=== PATIENT | male | born 1960 | race Two or more races ===

== ENCOUNTER 2019-08-11 00:22 | Inpatient (IN) | payer OTHER ==
[2019-08-11 00:38] LABS: Glucose,Whole Blood >600 mg/dL (75-99)
[2019-08-11] MEDS ORDERED: Potassium Replacement Protocol 1 EACH MISC MISCELLANE PRN (00:38)
[2019-08-11] MEDS ORDERED: Magnesium Replacement Protocol 1 EACH MISC MISCELLANE PRN (00:38)
[2019-08-11] MEDS ORDERED: INSULIN REGULAR BOLUS (FROM DRIP BAG) IV ONE (00:38)
[2019-08-11] MEDS ORDERED: SODIUM CHLORIDE 0.9% 1,000 ML IV ONE (00:42)
--- NOTE | 2019-08-11 00:43 | ED ---
Altered Mental Status HPI - General Chief Complaint: Recheck/Abnormal Lab/Rx Stated Complaint: hyperglycemia Time Seen by Provider: 08/11/19 00:35 Source: patient, EMS Mode of arrival: EMS Limitations: altered mental status - History of Present Illness Initial Comments: This patient is a 58-year-old man brought for altered mental status, weakness, and vomiting. The patient is not able to give much history as he appears delirious. The patient's son states that he has been using a ketogenic diet and attempt to lose weight and that approximately 9 days or so ago, he started to have problems tolerating any oral intake. He was having vomiting after attempting to take things by mouth. The patient was able to tolerate chocolate milk and sodas and so that is pre-much which he has been taking the past few days. Patient's son does not live with him and is not aware if the patient has any medical history, does not believe that he is currently seeing a doctor. MD Complaint: altered mental status, confusion -: days(s) Severity: severe Associated Symptoms: denies other symptoms - Related Data Home Medications Medication Instructions Recorded Confirmed No Known Home Medications 08/11/19 08/11/19 Allergies Allergy/AdvReac Type Severity Reaction Status Date / Time No Known Allergies Allergy Verified 08/11/19 09:01 Review of Systems ROS Statement: Those systems with pertinent positive or pertinent negative responses have been documented in the HPI. ROS Other: All systems not noted in ROS Statement are negative. Limitations: ROS unobtainable due to patients medical condition Constitutional: Reports: as per HPI, weakness Gastrointestinal: Reports: as per HPI, nausea, vomiting Neurological: Reports: as per HPI, confusion Past Medical History Past Medical History: Diabetes Mellitus Past Surgical History: No Surgical Hx Reported Past Psychological History: No Psychological Hx Reported Smoking Status: Never smoker Past Alcohol Use History: None Reported Past Drug Use History: None Reported General Exam General appearance: alert, in distress Head exam: Present: atraumatic, normocephalic Eye exam: Present: normal appearance. Absent: scleral icterus, conjunctival injection ENT exam: Present: mucous membranes dry Neck exam: Present: full ROM. Absent: tenderness, meningismus Respiratory exam: Present: respiratory distress, other (Kussmaul respirations). Absent: wheezes, rales, rhonchi, stridor, decreased breath sounds Cardiovascular Exam: Present: normal rhythm, tachycardia, normal heart sounds. Absent: systolic murmur, diastolic murmur, rubs, gallop GI/Abdominal exam: Present: soft. Absent: distended, tenderness, guarding, rebound, rigid, mass Extremities exam: Present: normal inspection, normal capillary refill. Absent: pedal edema, calf tenderness Back exam: Present: normal inspection. Absent: CVA tenderness (R), CVA tenderness (L) Neurological exam: Present: alert, altered, CN II-XII intact. Absent: oriented X3, motor sensory deficit Skin exam: Present: warm, dry, intact, normal color, other (Decreased turgor) Course Vital Signs 08/11/19 08/11/19 08/11/19 00:28 01:25 02:46 Temperature 97.2 F L Pulse Rate 131 H 125 H 124 H Respiratory 26 H 36 H 36 H Rate Blood Pressure 97/72 192/99 177/86 O2 Sat by Pulse 98 99 96 Oximetry 08/11/19 08/11/19 08/11/19 03:19 05:08 06:29 Temperature Pulse Rate 125 H 116 H 114 H Respiratory 32 H 35 H 35 H Rate Blood Pressure 161/82 142/91 165/99 O2 Sat by Pulse 98 98 97 Oximetry 08/11/19 08/11/19 08/11/19 07:24 08:00 08:09 Temperature 96.2 F L Pulse Rate 118 H 108 H 106 H Respiratory 34 H 30 H 33 H Rate Blood Pressure 175/95 165/113 145/84 O2 Sat by Pulse 96 89 L 97 Oximetry Medical Decision Making - Lab Data Result diagrams: 08/14/19 08:29 08/14/19 08:29 Lab Results 08/11/19 08/11/19 08/11/19 Range/Units 00:34 00:49 00:49 WBC 41.7 H (3.8-10.6) k/uL RBC 5.54 (4.30-5.90) m/uL Hgb 17.0 (13.0-17.5) gm/dL Hct 57.4 H* (39.0-53.0) % MCV 103.6 H (80.0-100.0) fL MCH 30.7 (25.0-35.0) pg MCHC 29.6 L (31.0-37.0) g/dL RDW 12.0 (11.5-15.5) % Plt Count 578 H (150-450) k/uL Neutrophils % 74 % Lymphocytes % 22 % Monocytes % 2 % Eosinophils % 0 % Basophils % 1 % Neutrophils # 30.9 H (1.3-7.7) k/uL Lymphocytes # 9.1 H (1.0-4.8) k/uL Monocytes # 1.0 (0-1.0) k/uL Eosinophils # 0.1 (0-0.7) k/uL Basophils # 0.2 (0-0.2) k/uL Hypochromasia Marked Macrocytosis Slight VBG pH (7.31-7.41) VBG pCO2 (37-51) mmHg VBG HCO3 (24-28) mmol/L Sodium 135 L (137-145) mmol/L Potassium 4.4 (3.5-5.1) mmol/L Chloride 97 L (98-107) mmol/L Carbon Dioxide <5 L* (22-30) mmol/L Anion Gap mmol/L BUN 41 H (9-20) mg/dL Creatinine 2.18 H (0.66-1.25) mg/dL Est GFR (CKD-EPI)AfAm 37 (>60 ml/min/1.73 sqM) Est GFR (CKD-EPI)NonAf 32 (>60 ml/min/1.73 sqM) Glucose 944 H* (74-99) mg/dL POC Glucose (mg/dL) >600 H (75-99) mg/dL POC Glu Director Of Acquisitions ID Bhavya Arguello A Plasma Lactic Acid Norris (0.7-2.0) mmol/L Calcium 10.7 H (8.4-10.2) mg/dL Total Bilirubin 0.4 (0.2-1.3) mg/dL AST 21 (17-59) U/L ALT 26 (4-49) U/L Alkaline Phosphatase 165 H (38-126) U/L Troponin I (0.000-0.034) ng/mL Total Protein 7.7 (6.3-8.2) g/dL Albumin 4.2 (3.5-5.0) g/dL Urine Color Urine Appearance (Clear) Urine pH (5.0-8.0) Ur Specific Brewster (1.001-1.035) Urine Protein (Negative) Urine Glucose (UA) (Negative) Urine Ketones (Negative) Urine Blood (Negative) Urine Nitrite (Negative) Urine Bilirubin (Negative) Urine Urobilinogen (<2.0) mg/dL Ur Leukocyte Esterase (Negative) Urine RBC (0-5) /hpf Urine WBC (0-5) /hpf Urine WBC Clumps (None) /hpf Urine Bacteria (None) /hpf Urine Mucus (None) /hpf Urine Yeast (Budding) (None) /hpf Acetone, Qual Positive (Negative) 08/11/19 08/11/19 08/11/19 Range/Units 00:49 00:49 00:49 WBC (3.8-10.6) k/uL RBC (4.30-5.90) m/uL Hgb (13.0-17.5) gm/dL Hct (39.0-53.0) % MCV (80.0-100.0) fL MCH (25.0-35.0) pg MCHC (31.0-37.0) g/dL RDW (11.5-15.5) % Plt Count (150-450) k/uL Neutrophils % % Lymphocytes % % Monocytes % % Eosinophils % % Basophils % % Neutrophils # (1.3-7.7) k/uL Lymphocytes # (1.0-4.8) k/uL Monocytes # (0-1.0) k/uL Eosinophils # (0-0.7) k/uL Basophils # (0-0.2) k/uL Hypochromasia Macrocytosis VBG pH 6.82 L* (7.31-7.41) VBG pCO2 39 (37-51) mmHg VBG HCO3 6 L* (24-28) mmol/L Sodium (137-145) mmol/L Potassium (3.5-5.1) mmol/L Chloride (98-107) mmol/L Carbon Dioxide (22-30) mmol/L Anion Gap mmol/L BUN (9-20) mg/dL Creatinine (0.66-1.25) mg/dL Est GFR (CKD-EPI)AfAm (>60 ml/min/1.73 sqM) Est GFR (CKD-EPI)NonAf (>60 ml/min/1.73 sqM) Glucose (74-99) mg/dL POC Glucose (mg/dL) (75-99) mg/dL POC Glu Director Of Acquisitions ID Plasma Lactic Acid Norris 8.5 H* (0.7-2.0) mmol/L Calcium (8.4-10.2) mg/dL Total Bilirubin (0.2-1.3) mg/dL AST (17-59) U/L ALT (4-49) U/L Alkaline Phosphatase (38-126) U/L Troponin I <0.012 (0.000-0.034) ng/mL Total Protein (6.3-8.2) g/dL Albumin (3.5-5.0) g/dL Urine Color Urine Appearance (Clear) Urine pH (5.0-8.0) Ur Specific Brewster (1.001-1.035) Urine Protein (Negative) Urine Glucose (UA) (Negative) Urine Ketones (Negative) Urine Blood (Negative) Urine Nitrite (Negative) Urine Bilirubin (Negative) Urine Urobilinogen (<2.0) mg/dL Ur Leukocyte Esterase (Negative) Urine RBC (0-5) /hpf Urine WBC (0-5) /hpf Urine WBC Clumps (None) /hpf Urine Bacteria (None) /hpf Urine Mucus (None) /hpf Urine Yeast (Budding) (None) /hpf Acetone, Qual (Negative) 08/11/19 08/11/19 08/11/19 Range/Units 02:17 02:45 03:18 WBC (3.8-10.6) k/uL RBC (4.30-5.90) m/uL Hgb (13.0-17.5) gm/dL Hct (39.0-53.0) % MCV (80.0-100.0) fL MCH (25.0-35.0) pg MCHC (31.0-37.0) g/dL RDW (11.5-15.5) % Plt Count (150-450) k/uL Neutrophils % % Lymphocytes % % Monocytes % % Eosinophils % % Basophils % % Neutrophils # (1.3-7.7) k/uL Lymphocytes # (1.0-4.8) k/uL Monocytes # (0-1.0) k/uL Eosinophils # (0-0.7) k/uL Basophils # (0-0.2) k/uL Hypochromasia Macrocytosis VBG pH (7.31-7.41) VBG pCO2 (37-51) mmHg VBG HCO3 (24-28) mmol/L Sodium (137-145) mmol/L Potassium (3.5-5.1) mmol/L Chloride (98-107) mmol/L Carbon Dioxide (22-30) mmol/L Anion Gap mmol/L BUN (9-20) mg/dL Creatinine (0.66-1.25) mg/dL Est GFR (CKD-EPI)AfAm (>60 ml/min/1.73 sqM) Est GFR (CKD-EPI)NonAf (>60 ml/min/1.73 sqM) Glucose (74-99) mg/dL POC Glucose (mg/dL) >600 H >600 H (75-99) mg/dL POC Glu Director Of Acquisitions Lawrence Barragan Matthew Plasma Lactic Acid Norris (0.7-2.0) mmol/L Calcium (8.4-10.2) mg/dL Total Bilirubin (0.2-1.3) mg/dL AST (17-59) U/L ALT (4-49) U/L Alkaline Phosphatase (38-126) U/L Troponin I (0.000-0.034) ng/mL Total Protein (6.3-8.2) g/dL Albumin (3.5-5.0) g/dL Urine Color Light Yellow Urine Appearance Cloudy (Clear) Urine pH 5.0 (5.0-8.0) Ur Specific Brewster 1.018 (1.001-1.035) Urine Protein 1+ H (Negative) Urine Glucose (UA) 4+ H (Negative) Urine Ketones 2+ H (Negative) Urine Blood Moderate H (Negative) Urine Nitrite Negative (Negative) Urine Bilirubin Negative (Negative) Urine Urobilinogen <2.0 (<2.0) mg/dL Ur Leukocyte Esterase Small H (Negative) Urine RBC 8 H (0-5) /hpf Urine WBC 35 H (0-5) /hpf Urine WBC Clumps Few H (None) /hpf Urine Bacteria Rare H (None) /hpf Urine Mucus Rare H (None) /hpf Urine Yeast (Budding) Rare H (None) /hpf Acetone, Qual (Negative) 06/10/20 Range/Units 04:15 WBC (3.8-10.6) k/uL RBC (4.30-5.90) m/uL Hgb (13.0-17.5) gm/dL Hct (39.0-53.0) % MCV (80.0-100.0) fL MCH (25.0-35.0) pg MCHC (31.0-37.0) g/dL RDW (11.5-15.5) % Plt Count (150-450) k/uL Neutrophils % % Lymphocytes % % Monocytes % % Eosinophils % % Basophils % % Neutrophils # (1.3-7.7) k/uL Lymphocytes # (1.0-4.8) k/uL Monocytes # (0-1.0) k/uL Eosinophils # (0-0.7) k/uL Basophils # (0-0.2) k/uL Hypochromasia Macrocytosis VBG pH (7.31-7.41) VBG pCO2 (37-51) mmHg VBG HCO3 (24-28) mmol/L Sodium (137-145) mmol/L Potassium (3.5-5.1) mmol/L Chloride (98-107) mmol/L Carbon Dioxide (22-30) mmol/L Anion Gap mmol/L BUN (9-20) mg/dL Creatinine (0.66-1.25) mg/dL Est GFR (CKD-EPI)AfAm (>60 ml/min/1.73 sqM) Est GFR (CKD-EPI)NonAf (>60 ml/min/1.73 sqM) Glucose (74-99) mg/dL POC Glucose (mg/dL) >600 H (75-99) mg/dL POC Glu Director Of Acquisitions ID Nia Randolph Plasma Lactic Acid Norris (0.7-2.0) mmol/L Calcium (8.4-10.2) mg/dL Total Bilirubin (0.2-1.3) mg/dL AST (17-59) U/L ALT (4-49) U/L Alkaline Phosphatase (38-126) U/L Troponin I (0.000-0.034) ng/mL Total Protein (6.3-8.2) g/dL Albumin (3.5-5.0) g/dL Urine Color Urine Appearance (Clear) Urine pH (5.0-8.0) Ur Specific Brewster (1.001-1.035) Urine Protein (Negative) Urine Glucose (UA) (Negative) Urine Ketones (Negative) Urine Blood (Negative) Urine Nitrite (Negative) Urine Bilirubin (Negative) Urine Urobilinogen (<2.0) mg/dL Ur Leukocyte Esterase (Negative) Urine RBC (0-5) /hpf Urine WBC (0-5) /hpf Urine WBC Clumps (None) /hpf Urine Bacteria (None) /hpf Urine Mucus (None) /hpf Urine Yeast (Budding) (None) /hpf Acetone, Qual (Negative) - EKG Data -: EKG Interpreted by De EKG shows normal: sinus rhythm, axis (Left axis deviation), intervals (Normal), QRS complexes (Normal), ST-T waves (Normal) Rate: tachycardia (Rate 128 bpm) Critical Care Time Critical Care Time: Yes (45 minutes) Disposition Clinical Impression: DKA (diabetic ketoacidoses), Acute kidney injury, Leukocytosis Disposition: ADMITTED IP TO THIS [facility] Condition: Critical Is patient prescribed a controlled substance at d/c from ED?: No
[2019-08-11 01:03] LABS: Basophils # (A) 0.2 k/uL (0-0.2); Basophils % (A) 1 %; Eosinophils # (A) 0.1 k/uL (0-0.7); Eosinophils % (A) 0 %; Hypochromasia Marked; Lymphocytes # (A) 9.1 k/uL (1.0-4.8); Lymphocytes % (A) 22 %; MCH 30.7 pg (25.0-35.0); MCHC 29.6 g/dL (31.0-37.0); MCV 103.6 fL (80.0-100.0); Macrocytosis Slight; Mean Platelet Volume 9.1; Monocytes % (A) 2 %; Neutrophils # (A) 30.9 k/uL (1.3-7.7); Neutrophils % (A) 74 %; Platelet Count 578 k/uL (150-450); RBC 5.54 m/uL (4.30-5.90); WBC 41.7 k/uL (3.8-10.6)
[2019-08-11 01:06] LABS: HCT 57.4 % (39.0-53.0)
--- NOTE | 2019-08-11 01:13 | XR ---
EXAMINATION TYPE: XR chest 1V portable DATE OF EXAM: 08/11/2019 COMPARISON: NONE HISTORY: Short of breath TECHNIQUE: FINDINGS: Heart and mediastinum are normal. Lungs are clear. Diaphragm is normal. Bony thorax appears normal. There are chest leads. IMPRESSION: Normal chest.
[2019-08-11] MEDS: INSULIN REGULAR 100 UNIT in SODIUM CHLORIDE 0.9% 100 ML IV SCH ×3 (01:17→15:09)
[2019-08-11 01:22] LABS: ALT 26 U/L (4-49); AST 21 U/L (17-59); African American GFR (CKD) 37 (>60 ml/min/1.73 sqM); Albumin 4.2 g/dL (3.5-5.0); Alkaline Phosphatase 165 U/L (38-126); Blood Urea Nitrogen 41 mg/dL (9-20); Calcium 10.7 mg/dL (8.4-10.2); Chloride 97 mmol/L (98-107); Non-African American GFR(CKD) 32 (>60 ml/min/1.73 sqM); Potassium 4.4 mmol/L (3.5-5.1); Sodium 135 mmol/L (137-145); Total Bilirubin 0.4 mg/dL (0.2-1.3); Total Protein 7.7 g/dL (6.3-8.2)
[2019-08-11 01:34] LABS: Carbon Dioxide <5 mmol/L (22-30); Glucose 944 mg/dL (74-99)
[2019-08-11 02:18] LABS: Glucose,Whole Blood >600 mg/dL (75-99)
[2019-08-11 02:59] LABS: Appearance,Urine Cloudy (Clear); Bacteria,Urine Rare /hpf; Bilirubin,Urine Negative (Negative); Blood,Urine Moderate (Negative); Budding Yeast,Urine Rare /hpf; Color,Urine Light Yellow; Glucose,Urine (UA) 4+ (Negative); Leukocyte Esterase,Urine Small (Negative); Mucus,Urine Rare /hpf; Nitrite,Urine Negative (Negative); Protein,Urine 1+ (Negative); RBC,Urine 8 /hpf (0-5); Specific Gravity,Urine 1.018 (1.001-1.035); Urobilinogen,Urine <2.0 mg/dL (<2.0); WBC,Urine 35 /hpf (0-5)
[2019-08-11 03:02] LABS: Ketones,Urine 2+ (Negative)
[2019-08-11 03:20] LABS: Glucose,Whole Blood >600 mg/dL (75-99)
[2019-08-11 04:16] LABS: Glucose,Whole Blood >600 mg/dL (75-99)
[2019-08-11 04:41] LABS: VBG PH 6.82 (7.31-7.41)
[2019-08-11] MEDS ORDERED: DEXTROSE 5% IN WATER 1,000 ML with SODIUM BICARB (1 MEQ/ML) 150 ML IV SCH (05:15)
[2019-08-11] MEDS ORDERED: WATER FOR INJECTION, STERILE 1,000 ML with SODIUM ACETATE 150 MEQ IV SCH ×2 (05:15)
[2019-08-11 05:16] LABS: Glucose,Whole Blood >600 mg/dL (75-99)
[2019-08-11] MEDS: SODIUM CHLORIDE 0.9% 1,000 ML IV SCH ×3 (05:33→10:17)
[2019-08-11 06:26] LABS: Glucose,Whole Blood >600 mg/dL (75-99)
[2019-08-11 07:22] LABS: Glucose,Whole Blood 542 mg/dL (75-99)
--- NOTE | 2019-08-11 08:06 | P.HPIM ---
History of Present Illness H&P Date: 08/11/19 The patient is a 58-year-old male with a PMH of type II DM who presented to the ED with confusion and lethargy. The patient was a poor historian thereby history obtained partially from the chart. The patient notes that he had been feeling ill for the past few days and thereby came to the hospital. He is unable to elaborate the circumstances surrounding what exactly he felt or describe any particular symptoms. As per the ED documentation, the patient's son had noted that the patient was attempting to do acute agenic diet over the past few weeks and it subsequently felt ill and had not been able to tolerate many foods due to nausea and vomiting. He had reported that the patient was consuming only soreness and chocolate milk over the past several days. He had also reported that the patient does not currently have a primary care provider and has not been taking his medications for his type 2 diabetes. The patient had undergone an extensive evaluation in the emergency room with EKG showing sinus tachycardia with 122 bpm with left axis deviation and chest x-ray unremarkable. Laboratory evaluation had revealed a WBC count of 41.7, hemoglobin 17.0, hematocrit 57.4, platelet is 578, sodium 135, potassium 4.4, A- gap > 33, CO2 less than 5, BUN 41, creatinine 2.18, glucose 144, lactic acid 8.5, with calcium 10.7. The patient was started on insulin infusion along with a bicarbonate infusion and is being admitted to the medical ICU for further management of DKA. Review of Systems Pertinent positives and negatives as discussed in HPI, a complete review of systems was performed and all other systems are negative. Past Medical History Past Medical History: Diabetes Mellitus Past Surgical History: No Surgical Hx Reported Past Psychological History: No Psychological Hx Reported Smoking Status: Never smoker Past Alcohol Use History: None Reported Past Drug Use History: None Reported Medications and Allergies Allergies Allergy/AdvReac Type Severity Reaction Status Date / Time No Known Allergies Allergy Verified 08/11/19 00:31 Physical Exam Vitals: Vital Signs Temp Pulse Resp BP Pulse Ox 08/11/19 07:24 118 H 34 H 175/95 96 08/11/19 06:29 114 H 35 H 165/99 97 08/11/19 05:08 116 H 35 H 142/91 98 08/11/19 03:19 125 H 32 H 161/82 98 08/11/19 02:46 124 H 36 H 177/86 96 08/11/19 01:25 125 H 36 H 192/99 99 08/11/19 00:28 97.2 F L 131 H 26 H 97/72 98 Intake and Output 08/10/19 08/11/19 08/11/19 22:59 06:59 14:59 Intake Total 55.477 33.452 Balance 55.477 33.452 Intake: Intake, IV Titration 55.477 33.452 Amount Insulin Regular 100 unit 55.477 33.452 In Sodium Chloride 0.9% 100 ml @ 0.1 UNITS/KG/HR 13.057 mls/hr IV .[id number] [facility] Rx#:[id number] Other: Weight 129.274 kg General: ill appearing M, no distress, appears at stated age, normal weight Derm: no unusual rashes/lesions no unusual ecchymoses, warm, dry Head: atraumatic, normocephalic, symmetric Eyes: EOMI, no lid lag, anicteric sclera, pupils equal round reactive to light ENT: Nose and ears atraumatic, no thrush, no pharyngeal erythema Neck: No thyromegaly, no cervical lymphadenopathy, trachea midline, supple Mouth: no lip lesion, mucus membranes very dry Cardiovascular: S1S2 reg, tachycardic, no murmur, positive posterior tibial pulse bilateral, no edema, capillary refill less than 2 seconds Lungs: CTA bilateral, no rhonchi, no rales, tachypnea with minimal accessory muscle use Abdominal: soft, nontender to palpation, no guarding, no appreciable organ omegaly, normal bowel sounds Ext: no gross muscle atrophy, muscle strength 4 out of 5 in all 4 extremities grossly, no contractures, Neuro: CN II-XI grossly intact, light touch intact all 4 extremities, no focal neuro deficits noted Psych: Awake, lethargic and slow to respond, oriented to self and place, not oriented to time Results CBC & Chem 7: 08/11/19 00:49 08/11/19 00:49 Labs: Abnormal Lab Results - Last 24 Hours (Table) 08/11/19 08/11/19 08/11/19 Range/Units 00:34 00:49 00:49 WBC 41.7 H (3.8-10.6) k/uL Hct 57.4 H* (39.0-53.0) % MCV 103.6 H (80.0-100.0) fL MCHC 29.6 L (31.0-37.0) g/dL Plt Count 578 H (150-450) k/uL Neutrophils # 30.9 H (1.3-7.7) k/uL Lymphocytes # 9.1 H (1.0-4.8) k/uL VBG pH (7.31-7.41) VBG HCO3 (24-28) mmol/L Sodium 135 L (137-145) mmol/L Chloride 97 L (98-107) mmol/L Carbon Dioxide <5 L* (22-30) mmol/L BUN 41 H (9-20) mg/dL Creatinine 2.18 H (0.66-1.25) mg/dL Glucose 944 H* (74-99) mg/dL POC Glucose (mg/dL) >600 H (75-99) mg/dL Plasma Lactic Acid Norris (0.7-2.0) mmol/L Calcium 10.7 H (8.4-10.2) mg/dL Alkaline Phosphatase 165 H (38-126) U/L Urine Protein (Negative) Urine Glucose (UA) (Negative) Urine Ketones (Negative) Urine Blood (Negative) Ur Leukocyte Esterase (Negative) Urine RBC (0-5) /hpf Urine WBC (0-5) /hpf Urine WBC Clumps (None) /hpf Urine Bacteria (None) /hpf Urine Mucus (None) /hpf Urine Yeast (Budding) (None) /hpf 08/11/19 08/11/19 08/11/19 Range/Units 00:49 00:49 02:17 WBC (3.8-10.6) k/uL Hct (39.0-53.0) % MCV (80.0-100.0) fL MCHC (31.0-37.0) g/dL Plt Count (150-450) k/uL Neutrophils # (1.3-7.7) k/uL Lymphocytes # (1.0-4.8) k/uL VBG pH 6.82 L* (7.31-7.41) VBG HCO3 6 L* (24-28) mmol/L Sodium (137-145) mmol/L Chloride (98-107) mmol/L Carbon Dioxide (22-30) mmol/L BUN (9-20) mg/dL Creatinine (0.66-1.25) mg/dL Glucose (74-99) mg/dL POC Glucose (mg/dL) >600 H (75-99) mg/dL Plasma Lactic Acid Norris 8.5 H* (0.7-2.0) mmol/L Calcium (8.4-10.2) mg/dL Alkaline Phosphatase (38-126) U/L Urine Protein (Negative) Urine Glucose (UA) (Negative) Urine Ketones (Negative) Urine Blood (Negative) Ur Leukocyte Esterase (Negative) Urine RBC (0-5) /hpf Urine WBC (0-5) /hpf Urine WBC Clumps (None) /hpf Urine Bacteria (None) /hpf Urine Mucus (None) /hpf Urine Yeast (Budding) (None) /hpf 08/11/19 08/11/19 08/11/19 Range/Units 02:45 03:18 04:15 WBC (3.8-10.6) k/uL Hct (39.0-53.0) % MCV (80.0-100.0) fL MCHC (31.0-37.0) g/dL Plt Count (150-450) k/uL Neutrophils # (1.3-7.7) k/uL Lymphocytes # (1.0-4.8) k/uL VBG pH (7.31-7.41) VBG HCO3 (24-28) mmol/L Sodium (137-145) mmol/L Chloride (98-107) mmol/L Carbon Dioxide (22-30) mmol/L BUN (9-20) mg/dL Creatinine (0.66-1.25) mg/dL Glucose (74-99) mg/dL POC Glucose (mg/dL) >600 H >600 H (75-99) mg/dL Plasma Lactic Acid Norris (0.7-2.0) mmol/L Calcium (8.4-10.2) mg/dL Alkaline Phosphatase (38-126) U/L Urine Protein 1+ H (Negative) Urine Glucose (UA) 4+ H (Negative) Urine Ketones 2+ H (Negative) Urine Blood Moderate H (Negative) Ur Leukocyte Esterase Small H (Negative) Urine RBC 8 H (0-5) /hpf Urine WBC 35 H (0-5) /hpf Urine WBC Clumps Few H (None) /hpf Urine Bacteria Rare H (None) /hpf Urine Mucus Rare H (None) /hpf Urine Yeast (Budding) Rare H (None) /hpf 08/11/19 08/11/19 08/11/19 Range/Units 05:15 06:24 07:19 WBC (3.8-10.6) k/uL Hct (39.0-53.0) % MCV (80.0-100.0) fL MCHC (31.0-37.0) g/dL Plt Count (150-450) k/uL Neutrophils # (1.3-7.7) k/uL Lymphocytes # (1.0-4.8) k/uL VBG pH (7.31-7.41) VBG HCO3 (24-28) mmol/L Sodium (137-145) mmol/L Chloride (98-107) mmol/L Carbon Dioxide (22-30) mmol/L BUN (9-20) mg/dL Creatinine (0.66-1.25) mg/dL Glucose (74-99) mg/dL POC Glucose (mg/dL) >600 H >600 H 542 H (75-99) mg/dL Plasma Lactic Acid Norris (0.7-2.0) mmol/L Calcium (8.4-10.2) mg/dL Alkaline Phosphatase (38-126) U/L Urine Protein (Negative) Urine Glucose (UA) (Negative) Urine Ketones (Negative) Urine Blood (Negative) Ur Leukocyte Esterase (Negative) Urine RBC (0-5) /hpf Urine WBC (0-5) /hpf Urine WBC Clumps (None) /hpf Urine Bacteria (None) /hpf Urine Mucus (None) /hpf Urine Yeast (Budding) (None) /hpf Assessment and Plan Plan: Diabetic ketoacidosis -Continue with insulin infusion with DKA protocol -IV fluids with normal saline 20 mL an hour -Potassium replacement -Monitor BMP every 4 hourly -Admitted to MICU -Continue with bicarbonate infusion -Blood glucose monitoring every hour -Check A1c Toxic metabolic encephalopathy in setting of diabetic ketoacidosis -Continue with DKA management as above Hyponatremia, likely pseudohyponatremia from hyperglycemia -Continue to manage DKA as above Thrombocytosis and polycythemia, likely due to hemoconcentration -Continue the IV fluids and DKA management CANELO versus chronic kidney disease -Likely secondary to severe dehydration in setting of DKA -Continue to monitor -IV fluids DVT prophylaxis -Heparin The patient is admitted with an anticipated greater than 2 midnight stay for evaluation of DKA CODE STATUS: Full Code Discussed with: Patient Anticipated discharge date: 3-[address]: Home A total of 40 minutes was spent on the care of this complex patient more than 50% of the time was spent in counseling and care coordination.
[2019-08-11 08:19] LABS: Glucose,Whole Blood 544 mg/dL (75-99)
[2019-08-11 09:06] LABS: Glucose,Whole Blood 449 mg/dL (75-99)
[2019-08-11 09:11] LABS: ABG Base Excess -17.9 mmol/L; ABG Oxygen Saturation 97.5 % (94-97); ABG PCO2 24 mmHg (35-45); ABG PH 7.22 (7.35-7.45); ABG PO2 100 mmHg (83-108); ABG TCO2 11 mmol/L (19-24); Allen Test Performed? Yes
[2019-08-11 09:14] LABS: ABG HCO3 10 mmol/L (21-25)
[2019-08-11 09:18] LABS: Calcium 9.8 mg/dL (8.4-10.2); Magnesium 2.3 mg/dL (1.6-2.3)
[2019-08-11 09:24] LABS: Phosphorus 0.9 mg/dL (2.5-4.5); Potassium 2.7 mmol/L (3.5-5.1)
[2019-08-11] MEDS ORDERED: Phosphorus Replacement Protoco 1 EACH MISC MISCELLANE PRN (09:43)
[2019-08-11] MEDS ORDERED: PIPERACILLIN-TAZOBACTAM 3.375 GM in SODIUM CHLORIDE 0.9% 100 ML IVPB SCH (09:45)
[2019-08-11 10:10] LABS: Glucose,Whole Blood 432 mg/dL (75-99)
[2019-08-11] MEDS: POTASSIUM CHLORIDE 20 MEQ in WATER FOR INJECTION 1 100ML.BAG IVPB SCH ×3 (10:16→14:05)
[2019-08-11] MEDS: POTASSIUM PHOSPHATE 10 MMOL in SODIUM CHLORIDE 0.9% 250 ML IV SCH ×5 (10:46→20:45)
[2019-08-11 11:03] LABS: Amylase 118 U/L (30-110)
[2019-08-11 11:09] LABS: Glucose,Whole Blood 339 mg/dL (75-99)
[2019-08-11 12:03] LABS: Glucose,Whole Blood 298 mg/dL (75-99)
[2019-08-11] MEDS ORDERED: DEXTROSE 5%-0.45% NACL 1,000 ML with POTASSIUM CHLORIDE 20 MEQ IV SCH ×2 (12:15)
[2019-08-11] MEDS: D5-0.45% NACL WITH KCL 20MEQ/L 1,000 ML IV SCH ×2 (12:31→20:45)
[2019-08-11 13:13] LABS: Phosphorus 1.2 mg/dL (2.5-4.5); Potassium 2.8 mmol/L (3.5-5.1)
[2019-08-11 13:30] LABS: Glucose,Whole Blood 236 mg/dL (75-99)
--- NOTE | 2019-08-11 13:33 | P.CNPUL ---
History of Present Illness Consult date: 08/11/19 Requesting physician: Zeus Torres Reason for consult: dyspnea Chief complaint: Altered mental status, weakness, shortness of breath History of present illness: 58-year-old white male patient with past medical history of diabetes mellitus, who has been feeling weak, vomiting, not feeling well for last 12 days at home. Patient was brought into the emergency department per EMS for altered mental status. Per patient's son patient was trying a ketogenic diet however the patient himself denies it. Denies any fever or chills. He is not on any home medications. Lab work in the emergency department showed white blood cell count of 41.7, hemoglobin of 17, hematocrit of 57.4, platelet count of 578, blood sugar was 944, with CO2 of less than 5, initial anion gap was unable to be measured, subsequent anion gap was 17, BUN is 41, creatinine is 2.18. Venous blood gas showed pH of 6.82, pCO2 of 39, and bicarb of 6. Troponin was less than 0.012. Plasma lactic acid was 8.5, and did improve to 2.2 after hydration. Urinalysis showed 4+ glucose, 2+ ketones small leuks, rare bacteria, and WBCs, serum acetone was positive. Patient was started on insulin infusion, and IV hydration per diabetic ketoacidosis protocol. He received a liter bolus in the emergency department, he currently he is on 0.9 normal saline at a rate of 200 ML per hour and insulin infusion at 17 units per hour. He is lethargic but he is able to open eyes and give verbal answers. He states he started to feel better, sinus tachycardia on the monitor with a rate of 113 BPM, afebrile, blood pressures 156/93, patient's currently on 2 L of oxygen with pulse ox of 94%. Chest x-ray in emergency department showed no acute process. Patient did make approximately 900 mL and urine output since admission. Mucous membranes are dry. Patient is thirsty and asking for water, has not vomited since last night, tolerating ice chips. Repeat blood work this morning shows sodium of 141, potassium 2.8, chloride is 116, CO2 is 13, anion gap is improved at 12, BUN of 48, and creatinine is down to 1.5, serum phos is 1.2, potassium and phosphorus replacements have been ordered. Lipase is 1125, amylase is 118 Review of Systems All systems: negative Constitutional: Denies chills, Denies fever Eyes: denies blurred vision, denies pain Ears, nose, mouth and throat: Denies headache, Denies sore throat Cardiovascular: Denies chest pain, Denies shortness of breath Respiratory: Denies cough Gastrointestinal: Reports loss of appetite, Reports nausea, Reports vomiting, Denies abdominal pain, Denies diarrhea Musculoskeletal: Denies myalgias Integumentary: Denies pruritus, Denies rash Neurological: Denies numbness, Denies weakness Psychiatric: Denies anxiety, Denies depression Endocrine: Reports fatigue, Reports high blood sugars, Denies weight change Past Medical History Past Medical History: Diabetes Mellitus History of Any Multi-Drug Resistant Organisms: None Reported Past Surgical History: No Surgical Hx Reported Past Anesthesia/Blood Transfusion Reactions: No Reported Reaction Smoking Status: Never smoker Medications and Allergies Home Medications Medication Instructions Recorded Confirmed Type No Known Home Medications 08/11/19 08/11/19 History Allergies Allergy/AdvReac Type Severity Reaction Status Date / Time No Known Allergies Allergy Verified 08/11/19 09:01 Physical Exam Vitals: Vital Signs Temp Pulse Resp BP Pulse Ox 08/11/19 11:00 113 H 30 H 156/93 94 L 08/11/19 10:00 106 H 32 H 145/99 96 08/11/19 09:00 102 H 32 H 152/89 95 08/11/19 08:09 106 H 33 H 145/84 97 08/11/19 08:00 96.2 F L 108 H 30 H 165/113 89 L 08/11/19 07:24 118 H 34 H 175/95 96 08/11/19 06:29 114 H 35 H 165/99 97 08/11/19 05:08 116 H 35 H 142/91 98 08/11/19 03:19 125 H 32 H 161/82 98 08/11/19 02:46 124 H 36 H 177/86 96 08/11/19 01:25 125 H 36 H 192/99 99 08/11/19 00:28 97.2 F L 131 H 26 H 97/72 98 Intake and Output 08/10/19 08/11/19 08/11/19 22:59 06:59 14:59 Intake Total 55.477 1349.121 Output Total 900 Balance 55.477 449.121 Intake: IV 200 Sodium Chloride 0.9% 1, 200 000 ml @ 200 mls/hr IV . Q5H ANDER Rx#:[id number] Intake, IV Titration 55.477 1149.121 Amount Insulin Regular 100 unit 55.477 99.121 In Sodium Chloride 0.9% 100 ml @ 0.1 UNITS/KG/HR 13.057 mls/hr IV .Q7H45M ANDER Rx#:[id number] Potassium Chloride 20 meq 100 In Water For Injection 1 100ml.bag @ 50 mls/hr IVPB Q2H ANDER Rx#: [id number] Potassium Phosphate 10 250 mmol In Sodium Chloride 0 .9% 250 ml @ 125 mls/hr IV Q2H ANDER Rx#:[id number] Sodium Chloride 0.9% 1, 700 000 ml @ 200 mls/hr IV . Q5H ANDER Rx#:[id number] Output: Urine 900 Other: Voiding Method Indwelling Catheter Weight 129.274 kg 129.274 kg GENERAL EXAM: Lethargic but easily arousable to verbal stimulation 58-year-old white male, on 2 L of oxygen with pulse ox of 94%, comfortable in no apparent distress. Patient is thirsty, asking for water, oral mucous membranes are dry HEAD: Normocephalic/atraumatic. EYES: Normal reaction of pupils, equal size. Conjunctiva pink, sclera white. NOSE: Clear with pink turbinates. THROAT: No erythema or exudates. NECK: No masses, no JVD, no thyroid enlargement, no adenopathy. CHEST: No chest wall deformity. Symmetrical expansion. LUNGS: Equal air entry with no crackles, wheeze, rhonchi or dullness. CVS: Regular rate and rhythm, normal S1 and S2, no gallops, no murmurs, no rubs ABDOMEN: Soft, nontender. No hepatosplenomegaly, normal bowel sounds, no guarding or rigidity. EXTREMITIES: No clubbing, no edema, no cyanosis, 2+ pulses and upper and lower extremities. MUSCULOSKELETAL: Muscle strength and tone normal. SPINE: No scoliosis or deformity SKIN: No rashes CENTRAL NERVOUS SYSTEM: Lethargic, weak, but arousable and oriented -3. No focal deficits, tone is normal in all 4 extremities. PSYCHIATRIC: Alert and oriented -3. Appropriate affect. Intact judgment and insight. Results - Laboratory Findings CBC and BMP: 08/11/19 00:49 08/11/19 08:36 ABG ABG pH 7.22 (7.35-7.45) L 08/11/19 09:10 ABG pCO2 24 mmHg (35-45) L 08/11/19 09:10 ABG pO2 100 mmHg (83-108) 08/11/19 09:10 ABG O2 Saturation 97.5 % (94-97) H 08/11/19 09:10 Abnormal lab findings: Abnormal Labs 08/11/19 08/11/19 08/11/19 00:34 00:49 00:49 WBC 41.7 H Hct 57.4 H* MCV 103.6 H MCHC 29.6 L Plt Count 578 H Neutrophils # 30.9 H Lymphocytes # 9.1 H ABG pH ABG pCO2 ABG HCO3 ABG Total CO2 ABG O2 Saturation VBG pH VBG HCO3 Sodium 135 L Potassium Chloride 97 L Carbon Dioxide <5 L* BUN 41 H Creatinine 2.18 H Glucose 944 H* POC Glucose (mg/dL) >600 H Plasma Lactic Acid Norris Calcium 10.7 H Phosphorus Alkaline Phosphatase 165 H Amylase Lipase Urine Protein Urine Glucose (UA) Urine Ketones Urine Blood Ur Leukocyte Esterase Urine RBC Urine WBC Urine WBC Clumps Urine Bacteria Urine Mucus Urine Yeast (Budding) 08/11/19 08/11/19 08/11/19 00:49 00:49 02:17 WBC Hct MCV MCHC Plt Count Neutrophils # Lymphocytes # ABG pH ABG pCO2 ABG HCO3 ABG Total CO2 ABG O2 Saturation VBG pH 6.82 L* VBG HCO3 6 L* Sodium Potassium Chloride Carbon Dioxide BUN Creatinine Glucose POC Glucose (mg/dL) >600 H Plasma Lactic Acid Norris 8.5 H* Calcium Phosphorus Alkaline Phosphatase Amylase Lipase Urine Protein Urine Glucose (UA) Urine Ketones Urine Blood Ur Leukocyte Esterase Urine RBC Urine WBC Urine WBC Clumps Urine Bacteria Urine Mucus Urine Yeast (Budding) 08/11/19 08/11/19 08/11/19 02:45 03:18 04:15 WBC Hct MCV MCHC Plt Count Neutrophils # Lymphocytes # ABG pH ABG pCO2 ABG HCO3 ABG Total CO2 ABG O2 Saturation VBG pH VBG HCO3 Sodium Potassium Chloride Carbon Dioxide BUN Creatinine Glucose POC Glucose (mg/dL) >600 H >600 H Plasma Lactic Acid Norris Calcium Phosphorus Alkaline Phosphatase Amylase Lipase Urine Protein 1+ H Urine Glucose (UA) 4+ H Urine Ketones 2+ H Urine Blood Moderate H Ur Leukocyte Esterase Small H Urine RBC 8 H Urine WBC 35 H Urine WBC Clumps Few H Urine Bacteria Rare H Urine Mucus Rare H Urine Yeast (Budding) Rare H 08/11/19 08/11/19 08/11/19 05:15 06:24 07:19 WBC Hct MCV MCHC Plt Count Neutrophils # Lymphocytes # ABG pH ABG pCO2 ABG HCO3 ABG Total CO2 ABG O2 Saturation VBG pH VBG HCO3 Sodium Potassium Chloride Carbon Dioxide BUN Creatinine Glucose POC Glucose (mg/dL) >600 H >600 H 542 H Plasma Lactic Acid Norris Calcium Phosphorus Alkaline Phosphatase Amylase Lipase Urine Protein Urine Glucose (UA) Urine Ketones Urine Blood Ur Leukocyte Esterase Urine RBC Urine WBC Urine WBC Clumps Urine Bacteria Urine Mucus Urine Yeast (Budding) 08/11/19 08/11/19 08/11/19 08:16 08:36 08:36 WBC Hct MCV MCHC Plt Count Neutrophils # Lymphocytes # ABG pH ABG pCO2 ABG HCO3 ABG Total CO2 ABG O2 Saturation VBG pH VBG HCO3 Sodium Potassium 2.7 L* Chloride 113 H Carbon Dioxide 11 L BUN 47 H Creatinine 1.73 H Glucose 494 H POC Glucose (mg/dL) 544 H Plasma Lactic Acid Norris 2.2 H* Calcium Phosphorus 0.9 L* Alkaline Phosphatase Amylase Lipase Urine Protein Urine Glucose (UA) Urine Ketones Urine Blood Ur Leukocyte Esterase Urine RBC Urine WBC Urine WBC Clumps Urine Bacteria Urine Mucus Urine Yeast (Budding) 08/11/19 08/11/19 08/11/19 08:36 09:04 09:10 WBC Hct MCV MCHC Plt Count Neutrophils # Lymphocytes # ABG pH 7.22 L ABG pCO2 24 L ABG HCO3 10 L* ABG Total CO2 11 L ABG O2 Saturation 97.5 H VBG pH VBG HCO3 Sodium Potassium Chloride Carbon Dioxide BUN Creatinine Glucose POC Glucose (mg/dL) 449 H Plasma Lactic Acid Norris Calcium Phosphorus Alkaline Phosphatase Amylase 118 H Lipase 1125 H Urine Protein Urine Glucose (UA) Urine Ketones Urine Blood Ur Leukocyte Esterase Urine RBC Urine WBC Urine WBC Clumps Urine Bacteria Urine Mucus Urine Yeast (Budding) 08/11/19 08/11/19 08/11/19 10:08 11:07 12:02 WBC Hct MCV MCHC Plt Count Neutrophils # Lymphocytes # ABG pH ABG pCO2 ABG HCO3 ABG Total CO2 ABG O2 Saturation VBG pH VBG HCO3 Sodium Potassium Chloride Carbon Dioxide BUN Creatinine Glucose POC Glucose (mg/dL) 432 H 339 H 298 H Plasma Lactic Acid Norris Calcium Phosphorus Alkaline Phosphatase Amylase Lipase Urine Protein Urine Glucose (UA) Urine Ketones Urine Blood Ur Leukocyte Esterase Urine RBC Urine WBC Urine WBC Clumps Urine Bacteria Urine Mucus Urine Yeast (Budding) - Diagnostic Findings Chest x-ray: report reviewed, image reviewed Additional studies: EKG reviewed Assessment and Plan Plan: Assessment: #1. Acute diabetic ketoacidosis #2. Severe anion gap metabolic acidosis related to severe dehydration, elevated lactate and DKA, improving with hydration and insulin infusion #3. Leukocytosis, rule out infectious process, will order empiric antibiotic's and blood cultures #4. Hypokalemia #5. Hypophosphatemia #6. Acute kidney injury related to severe volume depletion and dehydration, improving with rehydration #7. Elevated lipase and amylase suggesting acute pancreatitis #8. History of diabetes mellitus type 2, without history of prior DKA. Not normally on any medications #9. Lifetime nonsmoker and only an occasional drinker Plan: Continue insulin infusion per DKA protocol, last blood sugar is 276, anion gap metabolic acidosis is improving, replace serum potassium and serum phosphorus per protocol. Order clear liquid diet, no nausea or vomiting, still tachycardic, will continue with IV fluids per DKA protocol. Patient is still lethargic and weak, but states he is feeling better and is able to answer some questions. Empiric antibiotics in the form of Zosyn, we'll send 2 sets of blood cultures, and urine culture. Patient will be closely monitored in intensive care unit, BMP every 4 hours. Chest x-ray showed clear lungs, no acute process. We'll continue to follow I performed a history & physical examination of the patient and discussed their management with my nurse practitioner, Mirela Mcgovern. I reviewed the nurse practitioner's note and agree with the documented findings and plan of care. Lung sounds are positive for clear breath sounds. The findings and the impre ssion was discussed with the patient. I attest to the documentation by the nurse practitioner. Time with Patient: Greater than 30
[2019-08-11 14:04] LABS: Glucose,Whole Blood 238 mg/dL (75-99)
--- NOTE | 2019-08-11 14:27 | P.PN ---
Progress Note - Text Progress Note Date: 08/11/19 Patient seen and examined. On insulin gtt per DKA protocol. Check bmp q 4hrs. Glucose q 1 hour.
[2019-08-11 15:01] LABS: Glucose,Whole Blood 304 mg/dL (75-99)
[2019-08-11 16:21] LABS: Glucose,Whole Blood 179 mg/dL (75-99)
[2019-08-11 17:02] LABS: Calcium 9.1 mg/dL (8.4-10.2); Phosphorus 1.5 mg/dL (2.5-4.5)
[2019-08-11 17:07] LABS: Glucose,Whole Blood 194 mg/dL (75-99)
[2019-08-11] MEDS: HEPARIN SODIUM,PORCINE 5,000 UNIT/ML 1 ML VIAL SQ SCH (17:22)
[2019-08-11] MEDS: POTASSIUM CHLORIDE 10 MEQ in WATER FOR INJECTION 1 100ML.BAG IVPB SCH ×2 (17:22→18:32)
[2019-08-11 18:51] LABS: Glucose,Whole Blood 151 mg/dL (75-99)
[2019-08-11] MEDS: PIPERACILLIN-TAZOBACTAM 3.375 GM in SODIUM CHLORIDE 0.9% 100 ML IVPB SCH (20:29)
[2019-08-11 20:30] LABS: Glucose,Whole Blood 112 mg/dL (75-99)
[2019-08-11] MEDS: POTASSIUM CHLORIDE ER 20 MEQ TAB.ER PO SCH (20:45)
[2019-08-11 20:58] LABS: Glucose,Whole Blood 144 mg/dL (75-99)
[2019-08-11 22:06] LABS: Glucose,Whole Blood 140 mg/dL (75-99)
[2019-08-11] MEDS ORDERED: HEPARIN SODIUM,PORCINE 5,000 UNIT/ML 1 ML VIAL ONE (23:00)
[2019-08-12] MEDS: HEPARIN SODIUM,PORCINE 5,000 UNIT/ML 1 ML VIAL SQ SCH ×3 (00:01→17:21)
[2019-08-12 03:45] LABS: Glucose,Whole Blood 170 mg/dL (75-99)
[2019-08-12 03:45] LABS: Glucose,Whole Blood 192 mg/dL (75-99)
[2019-08-12 03:46] LABS: Glucose,Whole Blood 248 mg/dL (75-99)
[2019-08-12 03:46] LABS: Glucose,Whole Blood 266 mg/dL (75-99)
[2019-08-12 03:46] LABS: Glucose,Whole Blood 290 mg/dL (75-99)
[2019-08-12] MEDS ORDERED: POTASSIUM CHLORIDE ER 20 MEQ TAB.ER PO ONE (04:00)
[2019-08-12 04:09] LABS: Glucose,Whole Blood 316 mg/dL (75-99)
[2019-08-12 04:39] LABS: Calcium 8.6 mg/dL (8.4-10.2); Potassium 3.7 mmol/L (3.5-5.1)
[2019-08-12 05:18] LABS: Glucose,Whole Blood 253 mg/dL (75-99)
[2019-08-12 05:54] LABS: Calcium 8.9 mg/dL (8.4-10.2); Potassium 3.4 mmol/L (3.5-5.1)
[2019-08-12 05:59] LABS: Basophils % (A) 0 %; Eosinophils % (A) 0 %; HCT 42.2 % (39.0-53.0); Lymphocytes # (A) 2.2 k/uL (1.0-4.8); Lymphocytes % (A) 11 %; MCH 29.6 pg (25.0-35.0); MCHC 32.6 g/dL (31.0-37.0); Mean Platelet Volume 8.1; Monocytes # (A) 0.7 k/uL (0-1.0); Monocytes % (A) 4 %; Neutrophils # (A) 16.3 k/uL (1.3-7.7); Neutrophils % (A) 85 %; Platelet Count 292 k/uL (150-450); RBC 4.64 m/uL (4.30-5.90); RDW 12.3 % (11.5-15.5); WBC 19.2 k/uL (3.8-10.6)
[2019-08-12 06:09] LABS: Glucose,Whole Blood 195 mg/dL (75-99)
[2019-08-12 06:13] LABS: HGB 13.7 gm/dL (13.0-17.5); MCV 90.9 fL (80.0-100.0)
[2019-08-12] MEDS: D5-0.45% NACL WITH KCL 20MEQ/L 1,000 ML IV SCH ×2 (06:43→09:00)
[2019-08-12] MEDS: PIPERACILLIN-TAZOBACTAM 3.375 GM in SODIUM CHLORIDE 0.9% 100 ML IVPB SCH ×3 (06:47→20:44)
[2019-08-12] MEDS: INSULIN REGULAR 100 UNIT in SODIUM CHLORIDE 0.9% 100 ML IV SCH ×2 (06:49→09:36)
[2019-08-12 07:03] LABS: Glucose,Whole Blood 169 mg/dL (75-99)
[2019-08-12] MEDS: POTASSIUM CHLORIDE ER 20 MEQ TAB.ER PO SCH ×2 (09:04→20:44)
[2019-08-12] MEDS: SODIUM CHLORIDE 0.9% 1,000 ML IV SCH ×2 (09:49→20:45)
[2019-08-12] MEDS: INSULIN DETEMIR (LEVEMIR) 100 UNIT/ML SYR SQ SCH (09:49)
[2019-08-12 10:42] VITALS: BMI 30.9
[2019-08-12 11:47] LABS: Glucose,Whole Blood 136 mg/dL (75-99)
--- NOTE | 2019-08-12 12:49 | P.PN ---
Subjective Progress Note Date: 08/12/19 Principal diagnosis: Hyperglycemia Doing well, better than yesterday. No sob, no pain. No fevers or chills. No nausea or vomiting. Objective - Vital Signs Vital signs: Vital Signs Temp 98.6 F 08/12/19 08:00 Pulse 89 08/12/19 11:00 Resp 24 08/12/19 11:00 BP 131/81 08/12/19 11:00 Pulse Ox 98 08/12/19 11:00 Intake & Output 08/11/19 08/12/19 08/12/19 18:59 06:59 18:59 Intake Total 3210.149 1934.4 550 Output Total 2100 2365 750 Balance 1110.149 -430.6 -200 Weight 129.274 kg 118.5 kg 118.5 kg Intake: IV 1350 1800 450 D5-0.45% NaCl with KCl 750 1800 450 20Meq/l 1,000 ml @ 150 mls/hr IV .Q6H40M [facility]ER Rx# :[id number] Sodium Chloride 0.9% 1, 600 000 ml @ 200 mls/hr IV . Q5H ANDER Rx#:[id number] Intake, IV Titration 1860.149 134.4 100 Amount Insulin Regular 100 unit 210.149 34.4 In Sodium Chloride 0.9% 100 ml @ 0.1 UNITS/KG/HR 13.057 mls/hr IV .Q7H45M [facility]ER Rx#:[id number] Piperacillin-Tazobactam 3 100 .375 gm In Sodium Chloride 0.9% 100 ml @ 25 mls/hr IVPB Q12HR ANDER Rx #:[id number] Potassium Chloride 20 meq 200 In Water For Injection 1 100ml.bag @ 50 mls/hr IVPB Q2H AND[facility] Rx#: [id number] Potassium Phosphate 10 750 mmol In Sodium Chloride 0 .9% 250 ml @ 125 mls/hr IV Q2H [facility] Rx#:[id number] Sodium Chloride 0.9% 1, 100 000 ml @ 100 mls/hr IV . Q10H [facility] Rx#:[id number] Sodium Chloride 0.9% 1, 700 000 ml @ 200 mls/hr IV . Q5H ANDER Rx#:[id number] Output: Urine 2100 2365 750 Other: Voiding Method Indwelling Catheter Indwelling Catheter Indwelling Catheter - Exam Constitutional: No acute distress, conversant, pleasant Eyes:Anicteric sclerae, moist conjunctiva, no lid-lag, PERRLA, ENMT: Oropharynx clear, no erythema, exudates Neck: Supple, FROM, no masses, or JVD, No carotid bruits, No thyromegaly Lungs: Clear to auscultation, Clear to percussion, Normal respiratory effort, no accessory muscle use Cardiovascular: Heart regular in rate and rhythm, No murmurs, gallops, or rubs, No peripheral edema Abdominal: Soft, Nontender, no guarding, rebound or rigidity, Normoactive bowel sounds, No hepatomegaly, No splenomegaly, No palpable mass Skin: Normal temperature, tone, texture, turgor, no induration, No subcutaneous nodules, No rash, lesions, No ulcers Extremities: No digital cyanosis, No clubbing, Pedal pulses intact and symmetrical, Radial pulses intact and symmetrical, No calf tenderness Psychiatric: Alert and oriented to person, place and time, appropriate affect, intact judgement Neuro: Muscles Strength 5/5 in all 4 extremities, Sensation to light touch grossly present throughout, Cranial nerves II-XII grossly intact, no focal sensory deficits - Labs CBC & Chem 7: 08/12/19 05:02 08/12/19 05:02 Labs: Abnormal Lab Results - Last 24 Hours (Table) 08/11/19 08/11/19 08/11/19 Range/Units 12:28 13:28 14:03 WBC (3.8-10.6) k/uL Neutrophils # (1.3-7.7) k/uL Potassium 2.8 L (3.5-5.1) mmol/L Chloride 116 H (98-107) mmol/L Carbon Dioxide 13 L (22-30) mmol/L BUN 48 H (9-20) mg/dL Creatinine 1.50 H (0.66-1.25) mg/dL Glucose 276 H (74-99) mg/dL POC Glucose (mg/dL) 236 H 238 H (75-99) mg/dL Phosphorus 1.2 L (2.5-4.5) mg/dL 08/11/19 08/11/19 08/11/19 Range/Units 14:57 15:55 16:14 WBC (3.8-10.6) k/uL Neutrophils # (1.3-7.7) k/uL Potassium 3.0 L (3.5-5.1) mmol/L Chloride 117 H (98-107) mmol/L Carbon Dioxide 14 L (22-30) mmol/L BUN 46 H (9-20) mg/dL Creatinine 1.59 H (0.66-1.25) mg/dL Glucose 183 H (74-99) mg/dL POC Glucose (mg/dL) 304 H 179 H (75-99) mg/dL Phosphorus 1.5 L (2.5-4.5) mg/dL 08/11/19 08/11/19 08/11/19 Range/Units 17:06 18:49 20:10 WBC (3.8-10.6) k/uL Neutrophils # (1.3-7.7) k/uL Potassium (3.5-5.1) mmol/L Chloride (98-107) mmol/L Carbon Dioxide (22-30) mmol/L BUN (9-20) mg/dL Creatinine (0.66-1.25) mg/dL Glucose (74-99) mg/dL POC Glucose (mg/dL) 194 H 151 H 112 H (75-99) mg/dL Phosphorus (2.5-4.5) mg/dL 08/11/19 08/11/19 08/11/19 Range/Units 20:56 22:04 23:00 WBC (3.8-10.6) k/uL Neutrophils # (1.3-7.7) k/uL Potassium (3.5-5.1) mmol/L Chloride (98-107) mmol/L Carbon Dioxide (22-30) mmol/L BUN (9-20) mg/dL Creatinine (0.66-1.25) mg/dL Glucose (74-99) mg/dL POC Glucose (mg/dL) 144 H 140 H 170 H (75-99) mg/dL Phosphorus (2.5-4.5) mg/dL 08/12/19 08/12/19 08/12/19 Range/Units 00:04 01:12 01:30 WBC (3.8-10.6) k/uL Neutrophils # (1.3-7.7) k/uL Potassium (3.5-5.1) mmol/L Chloride 117 H (98-107) mmol/L Carbon Dioxide 13 L (22-30) mmol/L BUN 42 H (9-20) mg/dL Creatinine 1.40 H (0.66-1.25) mg/dL Glucose 243 H (74-99) mg/dL POC Glucose (mg/dL) 192 H 248 H (75-99) mg/dL Phosphorus (2.5-4.5) mg/dL 08/12/19 08/12/19 08/12/19 Range/Units 02:01 03:09 04:07 WBC (3.8-10.6) k/uL Neutrophils # (1.3-7.7) k/uL Potassium (3.5-5.1) mmol/L Chloride (98-107) mmol/L Carbon Dioxide (22-30) mmol/L BUN (9-20) mg/dL Creatinine (0.66-1.25) mg/dL Glucose (74-99) mg/dL POC Glucose (mg/dL) 266 H 290 H 316 H (75-99) mg/dL Phosphorus (2.5-4.5) mg/dL 08/12/19 08/12/19 08/12/19 Range/Units 05:02 05:02 05:17 WBC 19.2 H (3.8-10.6) k/uL Neutrophils # 16.3 H (1.3-7.7) k/uL Potassium 3.4 L (3.5-5.1) mmol/L Chloride 117 H (98-107) mmol/L Carbon Dioxide 15 L (22-30) mmol/L BUN 41 H (9-20) mg/dL Creatinine 1.50 H (0.66-1.25) mg/dL Glucose 208 H (74-99) mg/dL POC Glucose (mg/dL) 253 H (75-99) mg/dL Phosphorus (2.5-4.5) mg/dL 08/12/19 08/12/19 08/12/19 Range/Units 06:07 07:01 11:45 WBC (3.8-10.6) k/uL Neutrophils # (1.3-7.7) k/uL Potassium (3.5-5.1) mmol/L Chloride (98-107) mmol/L Carbon Dioxide (22-30) mmol/L BUN (9-20) mg/dL Creatinine (0.66-1.25) mg/dL Glucose (74-99) mg/dL POC Glucose (mg/dL) 195 H 169 H 136 H (75-99) mg/dL Phosphorus (2.5-4.5) mg/dL Microbiology - Last 24 Hours (Table) 08/11/19 10:40 Blood Culture Gram Stain - Preliminary Blood Blood Culture - Preliminary Staphylococcus aureus 08/11/19 10:46 Blood Culture Gram Stain - Preliminary Blood 08/11/19 10:46 Blood Culture - Final Blood 08/11/19 10:40 Blood Culture - Final Blood 08/11/19 02:45 Urine Culture - Preliminary Urine,Catheterized Assessment and Plan Plan: Diabetic ketoacidosis -Resolved -D/C insulin gtt -Change IV fluids to just NS -Start lantus and SSI -Blood glucose monitoring every hour -Check A1c -Glucometer provided -Diabetic education Toxic metabolic encephalopathy in setting of diabetic ketoacidosis -Improved Hypokalemia -Replace Leukocytosis with thrombocytosis and polycythemia, likely due to DKA and hemoconcentration -Continue the IV fluids and DKA management CANELO versus chronic kidney disease, unknown baseline cr -Likely secondary to severe dehydration in setting of DKA -Continue to monitor -IV fluids DVT prophylaxis -Heparin Anticipated discharge date: 1-[address]: Home
--- NOTE | 2019-08-12 13:13 | P.PN ---
Subjective Progress Note Date: 08/12/19 Principal diagnosis: Acute diabetic ketoacidosis 58-year-old white male patient with past medical history of diabetes mellitus, who has been feeling weak, vomiting, not feeling well for last 12 days at home. Patient was brought into the emergency department per EMS for altered mental status. Per patient's son patient was trying a ketogenic diet however the patient himself denies it. Denies any fever or chills. He is not on any home medications. Lab work in the emergency department showed white blood cell count of 41.7, hemoglobin of 17, hematocrit of 57.4, platelet count of 578, blood sugar was 944, with CO2 of less than 5, initial anion gap was unable to be measured, subsequent anion gap was 17, BUN is 41, creatinine is 2.18. Venous blood gas showed pH of 6.82, pCO2 of 39, and bicarb of 6. Troponin was less than 0.012. Plasma lactic acid was 8.5, and did improve to 2.2 after hydration. Urinalysis showed 4+ glucose, 2+ ketones small leuks, rare bacteria, and WBCs, serum acetone was positive. Patient was started on insulin infusion, and IV hydration per diabetic ketoacidosis protocol. He received a liter bolus in the emergency department, he currently he is on 0.9 normal saline at a rate of 200 ML per hour and insulin infusion at 17 units per hour. He is lethargic but he is able to open eyes and give verbal answers. He states he started to feel better, sinus tachycardia on the monitor with a rate of 113 BPM, afebrile, blood pressures 156/93, patient's currently on 2 L of oxygen with pulse ox of 94%. Chest x-ray in emergency department showed no acute process. Patient did make approximately 900 mL and urine output since admission. Mucous membranes are dry. Patient is thirsty and asking for water, has not vomited since last night, tolerating ice chips. Repeat blood work this morning shows sodium of 141, potassium 2.8, chloride is 116, CO2 is 13, anion gap is improved at 12, BUN of 48, and creatinine is down to 1.5, serum phos is 1.2, potassium and phosphorus replacements have been ordered. Lipase is 1125, amylase is 118 Patient was reevaluated today on 08/12/19, remains in the ICU, patient is doing much better, remains on insulin 9 units per hour. IV fluid D5 45 at 150 ML per hour. His bicarb is up to 15 today. His anion gap has closed. Renal profile showed a BUN of 41 and creatinine of 1.50. Patient is feeling better, and bit stronger compared to yesterday. The plan today is to advance his diet, patient will be started on Levemir insulin, sliding scale insulin, and could be transferred out of the ICU to a regular medical floor. His O2 saturation is 98% on room air, patient has no active pulmonary symptoms. Objective - Vital Signs Vital signs: Vital Signs Temp 98.6 F 08/12/19 08:00 Pulse 89 08/12/19 11:00 Resp 24 08/12/19 11:00 BP 131/81 08/12/19 11:00 Pulse Ox 98 08/12/19 11:00 Intake & Output 08/11/19 08/12/19 08/12/19 18:59 06:59 18:59 Intake Total 3210.149 1934.4 550 Output Total 2100 2365 750 Balance 1110.149 -430.6 -200 Weight 129.274 kg 118.5 kg 118.5 kg Intake: IV 1350 1800 450 D5-0.45% NaCl with KCl 750 1800 450 20Meq/l 1,000 ml @ 150 mls/hr IV .Q6H40M [facility] Rx# :[id number] Sodium Chloride 0.9% 1, 600 000 ml @ 200 mls/hr IV . Q5H [facility] Rx#:[id number] Intake, IV Titration 1860.149 134.4 100 Amount Insulin Regular 100 unit 210.149 34.4 In Sodium Chloride 0.9% 100 ml @ 0.1 UNITS/KG/HR 13.057 mls/hr IV .Q7H45M [facility] Rx#:[id number] Piperacillin-Tazobactam 3 100 .375 gm In Sodium Chloride 0.9% 100 ml @ 25 mls/hr IVPB Q12HR [facility] Rx #:[id number] Potassium Chloride 20 meq 200 In Water For Injection 1 100ml.bag @ 50 mls/hr IVPB Q2H [facility] Rx#: [id number] Potassium Phosphate 10 750 mmol In Sodium Chloride 0 .9% 250 ml @ 125 mls/hr IV Q2H [facility] Rx#:[id number] Sodium Chloride 0.9% 1, 100 000 ml @ 100 mls/hr IV . Q10H [facility] Rx#:[id number] Sodium Chloride 0.9% 1, 700 000 ml @ 200 mls/hr IV . Q5H [facility]ER Rx#:[id number] Output: Urine 2100 2365 750 Other: Voiding Method Indwelling Catheter Indwelling Catheter Indwelling Catheter - Exam GENERAL EXAM: Revealed 58-year-old white male in no distress. On room air. Head: Atraumatic normocephalic. EENT: PERRLA, EOMI, no active. CHEST: No chest wall deformity. Symmetrical expansion. LUNGS: Equal air entry with no crackles, wheeze, rhonchi or dullness. CVS: Regular rate and rhythm, normal S1 and S2, no gallops, no murmurs, no rubs ABDOMEN: Soft, nontender. No hepatosplenomegaly, normal bowel sounds, no guarding or rigidity. EXTREMITIES: No clubbing, no edema, no cyanosis, 2+ pulses and upper and lower extremities. MUSCULOSKELETAL: Muscle strength and tone normal. SPINE: No scoliosis or deformity SKIN: No rashes CENTRAL NERVOUS SYSTEM: Alert and oriented 3, no gross focal deficits. PSYCHIATRIC normal mood affect and normal mental status examination - Labs CBC & Chem 7: 08/12/19 05:02 08/12/19 05:02 Labs: Abnormal Lab Results - Last 24 Hours (Table) 08/11/19 08/11/19 08/11/19 Range/Units 12:28 13:28 14:03 WBC (3.8-10.6) k/uL Neutrophils # (1.3-7.7) k/uL Potassium 2.8 L (3.5-5.1) mmol/L Chloride 116 H (98-107) mmol/L Carbon Dioxide 13 L (22-30) mmol/L BUN 48 H (9-20) mg/dL Creatinine 1.50 H (0.66-1.25) mg/dL Glucose 276 H (74-99) mg/dL POC Glucose (mg/dL) 236 H 238 H (75-99) mg/dL Phosphorus 1.2 L (2.5-4.5) mg/dL 08/11/19 08/11/19 08/11/19 Range/Units 14:57 15:55 16:14 WBC (3.8-10.6) k/uL Neutrophils # (1.3-7.7) k/uL Potassium 3.0 L (3.5-5.1) mmol/L Chloride 117 H (98-107) mmol/L Carbon Dioxide 14 L (22-30) mmol/L BUN 46 H (9-20) mg/dL Creatinine 1.59 H (0.66-1.25) mg/dL Glucose 183 H (74-99) mg/dL POC Glucose (mg/dL) 304 H 179 H (75-99) mg/dL Phosphorus 1.5 L (2.5-4.5) mg/dL 08/11/19 08/11/19 08/11/19 Range/Units 17:06 18:49 20:10 WBC (3.8-10.6) k/uL Neutrophils # (1.3-7.7) k/uL Potassium (3.5-5.1) mmol/L Chloride (98-107) mmol/L Carbon Dioxide (22-30) mmol/L BUN (9-20) mg/dL Creatinine (0.66-1.25) mg/dL Glucose (74-99) mg/dL POC Glucose (mg/dL) 194 H 151 H 112 H (75-99) mg/dL Phosphorus (2.5-4.5) mg/dL 08/11/19 08/11/19 08/11/19 Range/Units 20:56 22:04 23:00 WBC (3.8-10.6) k/uL Neutrophils # (1.3-7.7) k/uL Potassium (3.5-5.1) mmol/L Chloride (98-107) mmol/L Carbon Dioxide (22-30) mmol/L BUN (9-20) mg/dL Creatinine (0.66-1.25) mg/dL Glucose (74-99) mg/dL POC Glucose (mg/dL) 144 H 140 H 170 H (75-99) mg/dL Phosphorus (2.5-4.5) mg/dL 08/12/19 08/12/19 08/12/19 Range/Units 00:04 01:12 01:30 WBC (3.8-10.6) k/uL Neutrophils # (1.3-7.7) k/uL Potassium (3.5-5.1) mmol/L Chloride 117 H (98-107) mmol/L Carbon Dioxide 13 L (22-30) mmol/L BUN 42 H (9-20) mg/dL Creatinine 1.40 H (0.66-1.25) mg/dL Glucose 243 H (74-99) mg/dL POC Glucose (mg/dL) 192 H 248 H (75-99) mg/dL Phosphorus (2.5-4.5) mg/dL 08/12/19 08/12/19 08/12/19 Range/Units 02:01 03:09 04:07 WBC (3.8-10.6) k/uL Neutrophils # (1.3-7.7) k/uL Potassium (3.5-5.1) mmol/L Chloride (98-107) mmol/L Carbon Dioxide (22-30) mmol/L BUN (9-20) mg/dL Creatinine (0.66-1.25) mg/dL Glucose (74-99) mg/dL POC Glucose (mg/dL) 266 H 290 H 316 H (75-99) mg/dL Phosphorus (2.5-4.5) mg/dL 08/12/19 08/12/19 08/12/19 Range/Units 05:02 05:02 05:17 WBC 19.2 H (3.8-10.6) k/uL Neutrophils # 16.3 H (1.3-7.7) k/uL Potassium 3.4 L (3.5-5.1) mmol/L Chloride 117 H (98-107) mmol/L Carbon Dioxide 15 L (22-30) mmol/L BUN 41 H (9-20) mg/dL Creatinine 1.50 H (0.66-1.25) mg/dL Glucose 208 H (74-99) mg/dL POC Glucose (mg/dL) 253 H (75-99) mg/dL Phosphorus (2.5-4.5) mg/dL 08/12/19 08/12/19 08/12/19 Range/Units 06:07 07:01 11:45 WBC (3.8-10.6) k/uL Neutrophils # (1.3-7.7) k/uL Potassium (3.5-5.1) mmol/L Chloride (98-107) mmol/L Carbon Dioxide (22-30) mmol/L BUN (9-20) mg/dL Creatinine (0.66-1.25) mg/dL Glucose (74-99) mg/dL POC Glucose (mg/dL) 195 H 169 H 136 H (75-99) mg/dL Phosphorus (2.5-4.5) mg/dL Microbiology - Last 24 Hours (Table) 08/11/19 10:40 Blood Culture Gram Stain - Preliminary Blood Blood Culture - Preliminary Staphylococcus aureus 08/11/19 10:46 Blood Culture Gram Stain - Preliminary Blood 08/11/19 10:46 Blood Culture - Final Blood 08/11/19 10:40 Blood Culture - Final Blood 08/11/19 02:45 Urine Culture - Preliminary Urine,Catheterized Assessment and Plan Assessment: Impression: Acute diabetic ketoacidosis. Severe anion gap metabolic acidosis secondary to DKA. Leukocytosis secondary to DKA, no clear-cut source of infection. Acute kidney injury most likely secondary to volume depletion. Hypovolemic in nature. Possible acute pancreatitis. History of diabetes, no previous episodes of DKA. Patient may have a type 1 diabetes considering that he had DKA on presentation. Recommendation: Continue present treatment plan, Continue IV fluids. Continue empiric antibiotics until all the cultures are negative. Transfer patient out of the ICU to a regular medical floor. Sliding scale insulin as per protocol. Alfaro on insulin. Consider discharge planning in the next 24 hours Time with Patient: Less than 30
[2019-08-12 17:43] LABS: Glucose,Whole Blood 152 mg/dL (75-99)
[2019-08-12] MEDS: INSULIN ASPART (NovoLOG) 100 UNIT/ML VIAL SQ SCH ×2 (18:21→20:44)
[2019-08-12 20:47] LABS: Glucose,Whole Blood 176 mg/dL (75-99)
[2019-08-13] MEDS: HEPARIN SODIUM,PORCINE 5,000 UNIT/ML 1 ML VIAL SQ SCH ×4 (00:32→23:04)
[2019-08-13] MEDS: SODIUM CHLORIDE 0.9% 1,000 ML IV SCH (00:32)
[2019-08-13] MEDS: PIPERACILLIN-TAZOBACTAM 3.375 GM in SODIUM CHLORIDE 0.9% 100 ML IVPB SCH ×2 (04:51→12:04)
[2019-08-13] MEDS: INSULIN DETEMIR (LEVEMIR) 100 UNIT/ML SYR SQ SCH (07:24)
[2019-08-13] MEDS: INSULIN ASPART (NovoLOG) 100 UNIT/ML VIAL SQ SCH ×4 (07:24→21:15)
[2019-08-13] MEDS: POTASSIUM CHLORIDE ER 20 MEQ TAB.ER PO SCH ×2 (07:24→21:15)
[2019-08-13 07:25] LABS: Glucose,Whole Blood 303 mg/dL (75-99)
[2019-08-13 07:51] LABS: Basophils % (A) 0 %; Eosinophils % (A) 0 %; HCT 40.8 % (39.0-53.0); HGB 13.4 gm/dL (13.0-17.5); Lymphocytes # (A) 1.9 k/uL (1.0-4.8); Lymphocytes % (A) 15 %; MCH 29.4 pg (25.0-35.0); MCHC 32.8 g/dL (31.0-37.0); MCV 89.8 fL (80.0-100.0); Mean Platelet Volume 8.2; Monocytes # (A) 0.3 k/uL (0-1.0); Monocytes % (A) 2 %; Neutrophils # (A) 10.7 k/uL (1.3-7.7); Neutrophils % (A) 82 %; Platelet Count 230 k/uL (150-450); RBC 4.54 m/uL (4.30-5.90); RDW 12.3 % (11.5-15.5)
[2019-08-13 08:03] LABS: Albumin 2.3 g/dL (3.5-5.0); Calcium 8.4 mg/dL (8.4-10.2); Magnesium 1.8 mg/dL (1.6-2.3); Phosphorus 2.2 mg/dL (2.5-4.5); Potassium 3.6 mmol/L (3.5-5.1); Total Bilirubin 0.5 mg/dL (0.2-1.3); Total Protein 5.1 g/dL (6.3-8.2)
[2019-08-13 11:32] LABS: Glucose,Whole Blood 296 mg/dL (75-99)
[2019-08-13] MEDS ORDERED: VANCOMYCIN IV PER PHARMACY 1 EACH MISC MISCELLANE PRN (14:24)
--- NOTE | 2019-08-13 14:32 | P.PN ---
Subjective Patient is doing well today. He reported feeling weak and is not ready to go home. He said that he is not comfortable doing his own insulin. Blood glucose still not well controlled. Objective - Vital Signs Vital signs: Vital Signs Temp 97.6 F 08/13/19 07:08 Pulse 98 08/13/19 08:00 Resp 18 08/13/19 08:00 BP 160/78 08/13/19 07:08 Pulse Ox 98 08/13/19 07:08 Intake & Output 08/12/19 08/13/19 08/13/19 18:59 06:59 18:59 Intake Total 2110 400 2140 Output Total 1800 2075 800 Balance 310 -1675 1340 Weight 118.5 kg Intake: IV 450 D5-0.45% NaCl with KCl 450 20Meq/l 1,000 ml @ 150 mls/hr IV .Q6H40M [facility] Rx# :[id number] Intake, IV Titration 700 900 Amount Piperacillin-Tazobactam 3 100 100 .375 gm In Sodium Chloride 0.9% 100 ml @ 25 mls/hr IVPB Q8H [facility] Rx#: [id number] Sodium Chloride 0.9% 1, 600 800 000 ml @ 100 mls/hr IV . Q10H [facility] Rx#:[id number] Oral 388 184 3691 Output: Urine 1800 2075 800 Other: Voiding Method Indwelling Catheter Urinal Urinal # Voids 2 # Bowel Movements 1 - Exam General: The patient is awake and alert, in no distress Eye: there is normal conjunctiva bilaterally. Neck: The neck is supple, there is no JVD. Cardiovascular: Normal S1-S2, no S3-S4, no murmurs. Respiratory: Lungs clear to auscultation bilaterally Gastrointestinal: Abdomen is soft, nontender Musculoskeletal: There is no pedal edema. Neurological:. Speech is normal. Skin: Skin is warm and dry - Labs CBC & Chem 7: 08/13/19 06:57 08/13/19 06:57 Labs: Abnormal Lab Results - Last 24 Hours (Table) 08/12/19 08/12/19 08/13/19 Range/Units 17:41 20:35 06:57 WBC (3.8-10.6) k/uL Neutrophils # (1.3-7.7) k/uL Chloride 119 H (98-107) mmol/L Carbon Dioxide 15 L (22-30) mmol/L BUN 33 H (9-20) mg/dL Creatinine 1.33 H (0.66-1.25) mg/dL Glucose 295 H (74-99) mg/dL POC Glucose (mg/dL) 152 H 176 H (75-99) mg/dL Phosphorus 2.2 L (2.5-4.5) mg/dL AST 16 L (17-59) U/L Total Protein 5.1 L (6.3-8.2) g/dL Albumin 2.3 L (3.5-5.0) g/dL 08/13/19 08/13/19 08/13/19 Range/Units 06:57 07:06 11:29 WBC 13.0 H (3.8-10.6) k/uL Neutrophils # 10.7 H (1.3-7.7) k/uL Chloride (98-107) mmol/L Carbon Dioxide (22-30) mmol/L BUN (9-20) mg/dL Creatinine (0.66-1.25) mg/dL Glucose (74-99) mg/dL POC Glucose (mg/dL) 303 H 296 H (75-99) mg/dL Phosphorus (2.5-4.5) mg/dL AST (17-59) U/L Total Protein (6.3-8.2) g/dL Albumin (3.5-5.0) g/dL Microbiology - Last 24 Hours (Table) 08/11/19 10:46 Blood Culture Gram Stain - Preliminary Blood Blood Culture - Preliminary Presumptive Staph aureus 08/11/19 10:40 Blood Culture Gram Stain - Preliminary Blood Blood Culture - Preliminary Staphylococcus aureus 08/11/19 02:45 Urine Culture - Preliminary Urine,Catheterized Presumptive Staph aureus Assessment and Plan Assessment: This is a 58-year-old male with complex past medical history noted below who presented to the emergency room feeling weak and vomiting. Patient was evaluated in the ER and admitted to the hospital for further management of his medical problems noted below. 1. DKA, treated aggressively with DKA protocol. Currently off the drip. 2. Type 2 diabetes, not well controlled. A1c pending. Change insulin to NovoLog 15 units twice daily. 3. Acute kidney injury, resolved with IV fluid hydration 4. Staph bacteremia, possibly contamination. I will repeat blood culture today. Consult infectious disease for further evaluation. Patient was started on Zosyn since admission with no clear source of infection. I would discontinue Zosyn and start vancomycin pharmacy to dose awaiting infectious disease evaluation.
[2019-08-13] MEDS ORDERED: VANCOMYCIN 1,750 MG in SODIUM CHLORIDE 0.9% 500 ML 500 ML IVPB ONE (15:00)
[2019-08-13 16:34] LABS: Glucose,Whole Blood 260 mg/dL (75-99)
[2019-08-13] MEDS: INSULN ASP PRT/INSULIN ASPART 100 UNIT/ML 10 ML VIAL SQ SCH (19:07)
[2019-08-13 20:55] LABS: Glucose,Whole Blood 154 mg/dL (75-99)
--- NOTE | 2019-08-14 00:15 | P.CONS ---
History of Present Illness - Reason for Consult Consult date: 08/13/19 bacteremia Requesting physician: Magdaleno Murillo - Chief Complaint not feeling well and vomiting x few days - History of Present Illness Patient is a 58-year male with a past medical history difficult for diabetes mellitus and this patient presented hospital 2 days ago with chief complaints of mental status changes weakness and vomiting with the patient symptom has been going on for few days apparently the patient son mentioned that the patient was recently treated at diet and attempt to lose weight proximal about 9 days or so ago patient had problems tolerating any oral intake as have vomiting after attempting to take anything by mouth with the symptom the patient was brought into the ER on arrival to the ER patient has been afebrile and no fever has been recorded with this admission patient had did have a white count of 41.7 on admission the subsequent came down to 13,000 as of this morning patient did have elevated BUN and creatinine and those has improved as well levels up to normal patient UA was positive as well as serum estrogen was positi ve as well patient did have a chest x-ray that has been negative for any consolidation had the patient did have blood cultures drawn which are now showing staph aureus urine is also showing staph aureus the patient has been started on vancomycin and infectious disease has been consulted for further management of antibiotic therapy, the patient had denies having any headache no fever no chills no chest pain shortness of breath or cough no abdominal pain no diarrhea currently do not have any open sores and no back pain. Review of Systems Positive point has been mentioned in HPI rest of the systems are negative Past Medical History Past Medical History: Diabetes Mellitus History of Any Multi-Drug Resistant Organisms: None Reported Past Surgical History: No Surgical Hx Reported Past Anesthesia/Blood Transfusion Reactions: No Reported Reaction Smoking Status: Never smoker Medications and Allergies Home Medications Medication Instructions Recorded Confirmed Type No Known Home Medications 08/11/19 08/11/19 History Allergies Allergy/AdvReac Type Severity Reaction Status Date / Time No Known Allergies Allergy Verified 08/11/19 09:01 Physical Exam Vitals: Vital Signs Temp Pulse Pulse Resp BP BP Pulse Ox 08/13/19 14:19 97.8 F 90 18 145/86 98 08/13/19 08:00 98 18 08/13/19 07:08 97.6 F 98 18 160/78 98 08/13/19 04:46 17 08/13/19 01:00 97.6 F 107 H 20 149/82 97 08/13/19 00:32 20 08/12/19 19:50 18 08/12/19 19:35 98 F 100 20 150/88 93 L 08/12/19 18:37 102 H 18 08/12/19 17:38 97.7 F 102 H 18 136/88 97 08/12/19 16:00 96 20 149/86 99 Intake and Output 08/13/19 08/13/19 08/13/19 06:59 14:59 22:59 Intake Total 200 2140 Output Total 1775 800 Balance -1575 1340 Intake: Intake, IV Titration 900 Amount Piperacillin-Tazobactam 3 100 .375 gm In Sodium Chloride 0.9% 100 ml @ 25 mls/hr IVPB Q8H [facility] Rx#: [id number] Sodium Chloride 0.9% 1, 800 000 ml @ 100 mls/hr IV . Q10H [facility] Rx#:[id number] Oral 200 1240 Output: Urine 1775 800 Other: Voiding Method Urinal Urinal # Voids 2 # Bowel Movements 1 GENERAL DESCRIPTION: Middle-aged male lying in bed, no distress. No tachypnea or accessory muscle of respiration use. HEENT: Shows Pallor , no scleral icterus. Oral mucous membrane is dry. NECK: Trachea central, no thyromegaly. LUNGS: Unlabored breathing. Clear to auscultation anteriorly. No wheeze or crackle. HEART: S1, S2, regular rate and rhythm. ABDOMEN: Soft, no tenderness , guarding or rigidity EXTREMITIES: No edema of feet. SKIN: No rash, no masses palpable. NEUROLOGICAL: The patient is awake, alert, oriented x3, mood and affect normal. Results CBC & Chem 7: 08/13/19 06:57 08/13/19 06:57 Labs: Abnormal Lab Results - Last 24 Hours (Table) 08/12/19 08/12/19 08/13/19 Range/Units 17:41 20:35 06:57 WBC (3.8-10.6) k/uL Neutrophils # (1.3-7.7) k/uL Chloride 119 H (98-107) mmol/L Carbon Dioxide 15 L (22-30) mmol/L BUN 33 H (9-20) mg/dL Creatinine 1.33 H (0.66-1.25) mg/dL Glucose 295 H (74-99) mg/dL POC Glucose (mg/dL) 152 H 176 H (75-99) mg/dL Phosphorus 2.2 L (2.5-4.5) mg/dL AST 16 L (17-59) U/L Total Protein 5.1 L (6.3-8.2) g/dL Albumin 2.3 L (3.5-5.0) g/dL 08/13/19 08/13/19 08/13/19 Range/Units 06:57 07:06 11:29 WBC 13.0 H (3.8-10.6) k/uL Neutrophils # 10.7 H (1.3-7.7) k/uL Chloride (98-107) mmol/L Carbon Dioxide (22-30) mmol/L BUN (9-20) mg/dL Creatinine (0.66-1.25) mg/dL Glucose (74-99) mg/dL POC Glucose (mg/dL) 303 H 296 H (75-99) mg/dL Phosphorus (2.5-4.5) mg/dL AST (17-59) U/L Total Protein (6.3-8.2) g/dL Albumin (3.5-5.0) g/dL Microbiology - Last 24 Hours (Table) 08/11/19 10:46 Blood Culture Gram Stain - Preliminary Blood Blood Culture - Preliminary Presumptive Staph aureus 08/11/19 10:40 Blood Culture Gram Stain - Preliminary Blood Blood Culture - Preliminary Staphylococcus aureus 08/11/19 02:45 Urine Culture - Preliminary Urine,Catheterized Presumptive Staph aureus Assessment and Plan Assessment: patient with staph aureus bacteremia and this patient presented to hospital with mental status changes nausea or vomiting patient did have elevated BUN and creatinine with urine growing the same pathogen questionable urinary source as the patient currently do not have any other obvious clinical focus for this bacteremia (1) Staphylococcus aureus bacteremia Current Visit: Yes Status: Acute Code(s): R78.81 - BACTEREMIA; B95.61 - METHICILLIN SUSCEP STAPH INFCT CAUSING DIS CLASSD [id number] SNOMED Code(s): 675040947 Plan: 1-blood cultures will be repeated document clearance of bacteremia 2-vancomycin pharmacy to dose her with a target trough of 15 while watching her kidney function and Vanco trough closely. 3-check ultrasound of the abdomen We will follow on clinical condition and cultures to further adjust medication if needed Thank you for this consultation we will follow the patient along with you Time with Patient: Greater than 30
[2019-08-14 03:57] LABS: Hemoglobin A1C 13.5 % (4.0-6.0)
[2019-08-14] MEDS: VANCOMYCIN 1,750 MG in SODIUM CHLORIDE 0.9% 500 ML 500 ML IVPB SCH ×2 (05:53→17:15)
[2019-08-14 07:59] LABS: Glucose,Whole Blood 254 mg/dL (75-99)
[2019-08-14] MEDS: HEPARIN SODIUM,PORCINE 5,000 UNIT/ML 1 ML VIAL SQ SCH ×2 (08:05→17:13)
--- NOTE | 2019-08-14 08:05 | US ---
EXAMINATION TYPE: US abdomen complete DATE OF EXAM: 08/14/2019 COMPARISON: NONE CLINICAL HISTORY: elevated CR and bacteremia. EXAM MEASUREMENTS: Liver Length: 17.4 cm Gallbladder Wall: 0.3 cm CBD: 0.4 cm Spleen: 14.3 cm Right Kidney: 14.4 x 6.9 x 7.0 cm Left Kidney: 14.0 x 6.3 x 6.3 cm Patient 6'5", 261lbs. Pancreas: portions visualized wnl, partially obscured by bowel gas Liver: upper limits of normal in size Gallbladder: stones and sludge Evidence for sonographic Tobar's sign: no CBD: wnl Spleen: measures large Right Kidney: mild hydronephrosis, measures large Left Kidney: measures large Upper IVC: wnl Abd Aorta: partially obscure Limited views of the pancreas are unremarkable. The liver is upper limits of normal in size. There are stones and sludge within the gallbladder. The gallbladder wall measures 3 mm. This common h epatic duct measures 4 mm. There is no sonographic Tobar's sign. IMPRESSION: 1. CHOLELITHIASIS. 2. MILD RIGHT-SIDED HYDRONEPHROSIS. 3. MILD HEPATOSPLENOMEGALY.
[2019-08-14] MEDS: POTASSIUM CHLORIDE ER 20 MEQ TAB.ER PO SCH ×4 (08:06→21:25)
[2019-08-14] MEDS: INSULN ASP PRT/INSULIN ASPART 100 UNIT/ML 10 ML VIAL SQ SCH ×2 (08:06→17:14)
[2019-08-14] MEDS: INSULIN ASPART (NovoLOG) 100 UNIT/ML VIAL SQ SCH ×4 (08:11→21:25)
[2019-08-14] MEDS: INSULIN DETEMIR (LEVEMIR) 100 UNIT/ML SYR SQ SCH (08:12)
[2019-08-14 08:59] LABS: Basophils % (A) 0 %; Eosinophils % (A) 0 %; HCT 44.9 % (39.0-53.0); Lymphocytes % (A) 20 %; MCHC 33.4 g/dL (31.0-37.0); MCV 89.9 fL (80.0-100.0); Monocytes # (A) 0.3 k/uL (0-1.0); Monocytes % (A) 3 %; Neutrophils # (A) 7.5 k/uL (1.3-7.7); Neutrophils % (A) 76 %; Platelet Count 199 k/uL (150-450); RBC 4.99 m/uL (4.30-5.90); RDW 12.5 % (11.5-15.5); WBC 9.8 k/uL (3.8-10.6)
[2019-08-14 09:07] LABS: Calcium 8.3 mg/dL (8.4-10.2); Potassium 3.1 mmol/L (3.5-5.1)
[2019-08-14 09:40] LABS: C Reactive Protein 62.5 mg/L (<10.0)
[2019-08-14 09:42] LABS: Erythrocyte Sedimentation Rate 84 mm/hr (0-15)
[2019-08-14 11:34] LABS: Glucose,Whole Blood 257 mg/dL (75-99)
--- NOTE | 2019-08-14 13:13 | P.PN ---
Subjective Patient is doing well today. He's feeling a lot better compared to yesterday. Objective - Vital Signs Vital signs: Vital Signs Temp 98.2 F 08/14/19 07:00 Pulse 97 08/14/19 07:00 Resp 16 08/14/19 07:00 BP 137/87 08/14/19 07:00 Pulse Ox 96 08/14/19 07:00 Intake & Output 08/13/19 08/14/19 08/14/19 18:59 06:59 18:59 Intake Total 2680 1460 Output Total 800 500 Balance 1880 1460 -500 Intake: Intake, IV Titration 900 1460 Amount Piperacillin-Tazobactam 3 100 .375 gm In Sodium Chloride 0.9% 100 ml @ 25 mls/hr IVPB Q8H [facility] Rx#: [id number] Sodium Chloride 0.9% 1, 800 960 000 ml @ 100 mls/hr IV . Q10H [facility] Rx#:[id number] Vancomycin 1,750 mg In 500 Sodium Chloride 0.9% 500 ml 500 ml @ 167 mls/hr IVPB Q12H [facility] Rx#: [id number] Oral 1780 Output: Urine 800 500 Other: Voiding Method Urinal Urinal Urinal # Voids 1 2 1 # Bowel Movements 1 - Exam General: The patient is awake and alert, in no distress Eye: there is normal conjunctiva bilaterally. Neck: The neck is supple, there is no JVD. Cardiovascular: Normal S1-S2, no S3-S4, no murmurs. Respiratory: Lungs clear to auscultation bilaterally Gastrointestinal: Abdomen is soft, nontender Musculoskeletal: There is no pedal edema. Neurological:. Speech is normal. Skin: Skin is warm and dry - Labs CBC & Chem 7: 08/14/19 08:29 08/14/19 08:29 Labs: Abnormal Lab Results - Last 24 Hours (Table) 08/13/19 08/13/19 08/13/19 Range/Units 06:12 16:30 20:53 ESR (0-15) mm/hr Potassium (3.5-5.1) mmol/L Chloride (98-107) mmol/L Carbon Dioxide (22-30) mmol/L BUN (9-20) mg/dL Glucose (74-99) mg/dL POC Glucose (mg/dL) 260 H 154 H (75-99) mg/dL Hemoglobin A1c 13.5 H (4.0-6.0) % Calcium (8.4-10.2) mg/dL C-Reactive Protein (<10.0) mg/L 08/14/19 08/14/19 08/14/19 Range/Units 07:57 08:29 08:29 ESR 84 H (0-15) mm/hr Potassium 3.1 L (3.5-5.1) mmol/L Chloride 114 H (98-107) mmol/L Carbon Dioxide 19 L (22-30) mmol/L BUN 24 H (9-20) mg/dL Glucose 267 H (74-99) mg/dL POC Glucose (mg/dL) 254 H (75-99) mg/dL Hemoglobin A1c (4.0-6.0) % Calcium 8.3 L (8.4-10.2) mg/dL C-Reactive Protein 62.5 H (<10.0) mg/L 08/14/19 Range/Units 11:33 ESR (0-15) mm/hr Potassium (3.5-5.1) mmol/L Chloride (98-107) mmol/L Carbon Dioxide (22-30) mmol/L BUN (9-20) mg/dL Glucose (74-99) mg/dL POC Glucose (mg/dL) 257 H (75-99) mg/dL Hemoglobin A1c (4.0-6.0) % Calcium (8.4-10.2) mg/dL C-Reactive Protein (<10.0) mg/L Microbiology - Last 24 Hours (Table) 08/11/19 10:46 Blood Culture Gram Stain - Final Blood Blood Culture - Final Staphylococcus aureus 08/11/19 10:40 Blood Culture Gram Stain - Final Blood Blood Culture - Final Staphylococcus aureus 08/11/19 02:45 Urine Culture - Final Urine,Catheterized Staphylococcus aureus Assessment and Plan Assessment: This is a 58-year-old male with complex past medical history noted below who presented to the emergency room feeling weak and vomiting. Patient was ev aluated in the ER and admitted to the hospital for further management of his medical problems noted below. 1. DKA, treated aggressively with DKA protocol. Currently off the drip. 2. Type 2 diabetes, not well controlled. A1c pending. Change insulin to NovoLog 15 units twice daily. 3. Acute kidney injury, resolved with IV fluid hydration 4. MSSA UTI and bacteremia, patient started on IV vancomycin. Repeat blood culture pending. Seen and evaluated by infectious disease. May escalate anti biotic coverage. Appreciate ID recommendations. Stay discharged home tomorrow.
[2019-08-14 16:37] LABS: Glucose,Whole Blood 247 mg/dL (75-99)
[2019-08-14 21:28] LABS: Glucose,Whole Blood 232 mg/dL (75-99)
--- NOTE | 2019-08-14 22:54 | PN ---
PROGRESS NOTE DATE OF SERVICE: 08/14/2019 REASON FOR FOLLOWUP: MSSA bacteremia. INTERVAL HISTORY: The patient is currently afebrile. The patient is breathing comfortably. The patient denies having any chest pain or shortness of breath or cough. No further nausea. No vomiting or diarrhea. PHYSICAL EXAMINATION: Blood pressure is 154/91 with a pulse of 90, temperature 98.6, 99% on room air. General description is a middle-aged male lying in bed in no distress. Respiratory system: Unlabored breathing, clear to auscultation anteriorly. Heart S1, S2. Regular rate and rhythm. Abdomen soft, no tenderness. LABS: Culture has been finalized with MSSA. Ultrasound with mild hydronephrosis and gallstones, but no evidence of any cholecystitis. DIAGNOSTIC IMPRESSION AND PLAN: Patient with MSSA bacteremia, source probably urine and no other obvious focus of infection. Blood culture has been negative. Antibiotic will be adjusted to cefazolin 2 grams q.8 hours. In view of the bacteremia the patient will need IV antibiotic on discharge. Med line will be placed on Friday. Continue supportive care. MMODL / IJN: [id number] /
[2019-08-15 07:07] LABS: Glucose,Whole Blood 256 mg/dL (75-99)
[2019-08-15] MEDS: INSULIN ASPART (NovoLOG) 100 UNIT/ML VIAL SQ SCH ×4 (07:55→20:58)
[2019-08-15] MEDS: INSULN ASP PRT/INSULIN ASPART 100 UNIT/ML 10 ML VIAL SQ SCH ×2 (07:55→17:25)
[2019-08-15] MEDS: POTASSIUM CHLORIDE ER 20 MEQ TAB.ER PO SCH ×4 (07:56→20:58)
[2019-08-15] MEDS: INSULIN DETEMIR (LEVEMIR) 100 UNIT/ML SYR SQ SCH (07:56)
[2019-08-15] MEDS: HEPARIN SODIUM,PORCINE 5,000 UNIT/ML 1 ML VIAL SQ SCH ×4 (07:56→23:54)
[2019-08-15 08:15] LABS: Basophils % (A) 0 %; Eosinophils % (A) 0 %; HCT 39.2 % (39.0-53.0); HGB 13.2 gm/dL (13.0-17.5); Lymphocytes # (A) 1.8 k/uL (1.0-4.8); Lymphocytes % (A) 17 %; MCH 30.1 pg (25.0-35.0); MCHC 33.7 g/dL (31.0-37.0); MCV 89.3 fL (80.0-100.0); Mean Platelet Volume 8.2; Monocytes # (A) 0.5 k/uL (0-1.0); Monocytes % (A) 5 %; Neutrophils # (A) 8.2 k/uL (1.3-7.7); Neutrophils % (A) 77 %; Platelet Count 178 k/uL (150-450); RBC 4.39 m/uL (4.30-5.90); RDW 12.3 % (11.5-15.5); WBC 10.7 k/uL (3.8-10.6)
[2019-08-15 08:21] LABS: Calcium 8.4 mg/dL (8.4-10.2); Magnesium 1.6 mg/dL (1.6-2.3); Potassium 3.2 mmol/L (3.5-5.1)
[2019-08-15] MEDS ORDERED: INSULN ASP PRT/INSULIN ASPART 100 UNIT/ML 10 ML VIAL SQ SCH (09:45)
[2019-08-15] MEDS: MAGNESIUM SULFATE-D5W PMX 1 GM in DEXTROSE/WATER 1 100ML.BAG IVPB SCH ×2 (10:03→11:15)
[2019-08-15 11:44] LABS: Glucose,Whole Blood 249 mg/dL (75-99)
[2019-08-15 11:46] LABS: Glucose,Whole Blood 257 mg/dL (75-99)
--- NOTE | 2019-08-15 13:09 | P.PN ---
Subjective Patient is doing well today. No acute events overnight. Blood glucose to not well controlled. Objective - Vital Signs Vital signs: Vital Signs Temp 97.5 F L 08/15/19 07:00 Pulse 92 08/15/19 07:00 Resp 16 08/15/19 07:00 BP 157/83 08/15/19 07:00 Pulse Ox 98 08/15/19 07:00 Intake & Output 08/14/19 08/15/19 08/15/19 18:59 06:59 18:59 Intake Total 540 766 Output Total 1800 3925 1045 Balance -1260 -7109 -1045 Intake: Oral 540 766 Output: Urine 1800 3925 1045 Other: Voiding Method Urinal Urinal Urinal # Voids 1 2 - Exam General: The patient is awake and alert, in no distress Eye: there is normal conjunctiva bilaterally. Neck: The neck is supple, there is no JVD. Cardiovascular: Normal S1-S2, no S3-S4, no murmurs. Respiratory: Lungs clear to auscultation bilaterally Gastrointestinal: Abdomen is soft, nontender Musculoskeletal: There is no pedal edema. Neurological:. Speech is normal. Skin: Skin is warm and dry - Labs CBC & Chem 7: 08/15/19 07:34 08/15/19 07:34 Labs: Abnormal Lab Results - Last 24 Hours (Table) 08/14/19 08/14/19 08/15/19 Range/Units 16:34 21:17 07:06 WBC (3.8-10.6) k/uL Neutrophils # (1.3-7.7) k/uL Potassium (3.5-5.1) mmol/L Chloride (98-107) mmol/L BUN (9-20) mg/dL Glucose (74-99) mg/dL POC Glucose (mg/dL) 247 H 232 H 256 H (75-99) mg/dL 08/15/19 08/15/19 08/15/19 Range/Units 07:34 07:34 11:43 WBC 10.7 H (3.8-10.6) k/uL Neutrophils # 8.2 H (1.3-7.7) k/uL Potassium 3.2 L (3.5-5.1) mmol/L Chloride 110 H (98-107) mmol/L BUN 21 H (9-20) mg/dL Glucose 231 H (74-99) mg/dL POC Glucose (mg/dL) 249 H (75-99) mg/dL 08/15/19 Range/Units 11:45 WBC (3.8-10.6) k/uL Neutrophils # (1.3-7.7) k/uL Potassium (3.5-5.1) mmol/L Chloride (98-107) mmol/L BUN (9-20) mg/dL Glucose (74-99) mg/dL POC Glucose (mg/dL) 257 H (75-99) mg/dL Microbiology - Last 24 Hours (Table) 08/14/19 08:29 Blood Culture Gram Stain - Preliminary Blood 08/14/19 08:29 Blood Culture - Final Blood 08/13/19 15:33 Blood Culture - Preliminary Blood No Growth after 24 hours Assessment and Plan Assessment: This is a 58-year-old male with complex past medical history noted below who presented to the emergency room feeling weak and vomiting. Patient was evaluated in the ER and admitted to the hospital for further management of his medical problems noted below. 1. DKA, treated aggressively with DKA protocol. Currently off the drip. 2. Type 2 diabetes, not well controlled. A1c 13.5. NovoLog 70/30 25 units twice daily. 3. Acute kidney injury, resolved with IV fluid hydration 4. MSSA UTI and bacteremia, patient started on IV vancomycin. Repeat blood culture negative. Seen and evaluated by infectious disease. Plan to continue IV cefazolin. We need PICC line and home infusion set up for discharged home tomorrow.
[2019-08-15 17:13] LABS: Glucose,Whole Blood 217 mg/dL (75-99)
[2019-08-15 20:54] LABS: Glucose,Whole Blood 182 mg/dL (75-99)
--- NOTE | 2019-08-16 01:57 | PN ---
PROGRESS NOTE DATE OF SERVICE: 08/15/2019 REASON FOR FOLLOWUP: MSSA bacteremia, questionable urinary source. INTERVAL HISTORY: The patient is currently afebrile. The patient is breathing comfortably. The patient denies having any chest pain or shortness of breath or cough. No nausea, no vomiting. No abdominal pain or diarrhea. PHYSICAL EXAMINATION: Blood pressure 141/79 with a pulse of 102, temperature 98. He is 97% on room air. General description is a middle-aged male lying in bed in no distress. RESPIRATORY SYSTEM: Unlabored breathing, clear to auscultation anteriorly. HEART: S1, S2. Regular rate and rhythm. ABDOMEN: Soft, no tenderness. No guarding or rigidity. LABS: Blood culture from yesterday are positive as well. DIAGNOSTIC IMPRESSION AND PLAN: Patient with MSSA bacteremia, concern for possible complicated urinary tract infection and no other obvious focus of infection. However, persistent bacteremia is of concern for possible source. Blood culture has been repeated today and will be repeated tomorrow as well and if those are positive, will need echocardiogram to make sure no evidence of any vegetation. Continue cefazolin 2 grams q.8 hours. Monitor clinical course closely. MMODL / IJN: [id number] /
[2019-08-16 07:33] LABS: Glucose,Whole Blood 208 mg/dL (75-99)
[2019-08-16] MEDS: INSULN ASP PRT/INSULIN ASPART 100 UNIT/ML 10 ML VIAL SQ SCH ×2 (08:18→17:13)
[2019-08-16] MEDS: INSULIN ASPART (NovoLOG) 100 UNIT/ML VIAL SQ SCH ×6 (08:18→21:13)
[2019-08-16] MEDS: HEPARIN SODIUM,PORCINE 5,000 UNIT/ML 1 ML VIAL SQ SCH ×3 (08:19→23:54)
[2019-08-16] MEDS: POTASSIUM CHLORIDE ER 20 MEQ TAB.ER PO SCH ×2 (08:19→21:13)
[2019-08-16 09:02] LABS: Basophils % (A) 0 %; Eosinophils # (A) 0.1 k/uL (0-0.7); Eosinophils % (A) 0 %; HCT 41.2 % (39.0-53.0); HGB 13.9 gm/dL (13.0-17.5); Lymphocytes # (A) 1.5 k/uL (1.0-4.8); Lymphocytes % (A) 12 %; MCH 29.9 pg (25.0-35.0); MCHC 33.7 g/dL (31.0-37.0); MCV 88.8 fL (80.0-100.0); Mean Platelet Volume 8.1; Monocytes # (A) 0.6 k/uL (0-1.0); Monocytes % (A) 4 %; Neutrophils # (A) 10.6 k/uL (1.3-7.7); Neutrophils % (A) 82 %; Platelet Count 201 k/uL (150-450); RBC 4.64 m/uL (4.30-5.90); RDW 12.2 % (11.5-15.5)
[2019-08-16 09:10] LABS: Calcium 8.6 mg/dL (8.4-10.2); Magnesium 1.9 mg/dL (1.6-2.3)
[2019-08-16 09:57] LABS: C Reactive Protein 69.2 mg/L (<10.0)
[2019-08-16 11:24] LABS: Erythrocyte Sedimentation Rate 90 mm/hr (0-15)
[2019-08-16 11:47] LABS: Glucose,Whole Blood 262 mg/dL (75-99)
--- NOTE | 2019-08-16 12:06 | P.PN ---
Subjective Patient is doing well today. He denies fever or chills No acute events overnight. Blood glucose to not well controlled. Patient is having persistent MSSA bacteremia Objective - Vital Signs Vital signs: Vital Signs Temp 98.8 F 08/16/19 07:00 Pulse 95 08/16/19 07:00 Resp 17 08/16/19 07:00 BP 135/89 08/16/19 07:00 Pulse Ox 97 08/16/19 07:00 Intake & Output 08/15/19 08/16/19 08/16/19 18:59 06:59 18:59 Intake Total 644 Output Total 1220 1200 Balance -1220 -556 Intake: Oral 644 Output: Urine 1220 1200 Other: Voiding Method Urinal Urinal # Voids 2 4 # Bowel Movements 1 - Exam General: The patient is awake and alert, in no distress Eye: there is normal conjunctiva bilaterally. Neck: The neck is supple, there is no JVD. Cardiovascular: Normal S1-S2, no S3-S4, no murmurs. Respiratory: Lungs clear to auscultation bilaterally Gastrointestinal: Abdomen is soft, nontender Musculoskeletal: There is no pedal edema. Neurological:. Speech is normal. Skin: Skin is warm and dry - Labs CBC & Chem 7: 08/16/19 08:28 08/16/19 08:28 Labs: Abnormal Lab Results - Last 24 Hours (Table) 08/15/19 08/15/19 08/16/19 Range/Units 17:12 20:40 07:15 WBC (3.8-10.6) k/uL Neutrophils # (1.3-7.7) k/uL ESR (0-15) mm/hr Sodium (137-145) mmol/L Glucose (74-99) mg/dL POC Glucose (mg/dL) 217 H 182 H 208 H (75-99) mg/dL C-Reactive Protein (<10.0) mg/L 08/16/19 08/16/19 08/16/19 Range/Units 08:28 08:28 11:45 WBC 13.0 H (3.8-10.6) k/uL Neutrophils # 10.6 H (1.3-7.7) k/uL ESR 90 H (0-15) mm/hr Sodium 136 L (137-145) mmol/L Glucose 276 H (74-99) mg/dL POC Glucose (mg/dL) 262 H (75-99) mg/dL C-Reactive Protein 69.2 H (<10.0) mg/L Microbiology - Last 24 Hours (Table) 08/15/19 07:34 Blood Culture Gram Stain - Preliminary Blood Blood Culture - Preliminary Staphylococcus aureus 08/11/19 10:46 Blood Culture Gram Stain - Final Blood Blood Culture - Final Staphylococcus aureus 08/11/19 10:40 Blood Culture Gram Stain - Final Blood Blood Culture - Final Staphylococcus aureus 08/15/19 07:34 Blood Culture - Final Blood 08/13/19 15:33 Blood Culture - Preliminary Blood No Growth after 48 hours 08/14/19 08:29 Blood Culture Gram Stain - Preliminary Blood Blood Culture - Preliminary Presumptive Staph aureus Assessment and Plan Assessment: This is a 58-year-old male with complex past medical history noted below who presented to the emergency room feeling weak and vomiting. Patient was evaluated in the ER and admitted to the hospital for further management of his medical problems noted below. 1. DKA, treated aggressively with DKA protocol. Currently off the drip. 2. Type 2 diabetes, not well controlled. A1c 13.5. NovoLog 70/30 25 units twice daily. Add NovoLog 5 units 3 times a day before each meal plus sliding scale 3. Acute kidney injury, resolved with IV fluid hydration 4. MSSA UTI and bacteremia, patient started on IV vancomycin. Repeat blood culture turned positive with evidence of persistent bacteremia. Seen and evaluated by infectious disease. Abdominal ultrasound with no obvious source Plan to continue IV cefazolin. Awaiting repeat blood culture from this morning. We will need negative blood culture for at least 24 hours prior to discharge. Infectious disease following closely. May consider BRIEN
[2019-08-16 16:46] LABS: Glucose,Whole Blood 223 mg/dL (75-99)
[2019-08-16] MEDS: IOPAMIDOL CONTRAST (ORAL USE) VIAL PO PRN ×2 (18:24→19:32)
[2019-08-16 20:31] LABS: Glucose,Whole Blood 194 mg/dL (75-99)
--- NOTE | 2019-08-16 20:53 | CT ---
EXAMINATION TYPE: CT abdomen pelvis wo con DATE OF EXAM: 08/16/2019 COMPARISON: Ultrasound 08/14/2019 HISTORY: MSSA BACTEREMIA CT DLP: 1282.4 mGycm Automated exposure control for dose reduction was used. TECHNIQUE: Helical acquisition of images from the lung bases through the pelvis. Patient received or al contrast only. FINDINGS: There is an umbilical hernia containing fat. LUNG BASES: No significant abnormality is appreciated. AORTA: No significant abnormality is appreciataed. LIVER/GB: Dependent high density within the gallbladder consistent with gallstone as noted on ultraso und, liver shows no mass. Low-attenuation of the liver may be due to hepatic steatosis, liver is enla rged. PANCREAS: No significant abnormality is seen. SPLEEN: Enlarged. ADRENALS: No significant abnormality is seen. KIDNEYS: Right-sided hydronephrosis and perinephric fluid is present, there is a proximal right urete ral calculus measuring 8 x 9-10 mm. REPRODUCTIVE ORGANS: No significant abnormality is seen. URINARY BLADDER: No significant abnormality is seen. BOWEL: No significant abnormality is seen. FREE AIR: No Free Air is visible. ASCITES: None visible. PELVIC ADENOPATHY: None visualized. RETROPERITONEAL ADENOPATHY: No Retroperitoneal Adenopathy visible. OSSEOUS STRUCTURES: 0 degenerative disc changes are present in the visualized spine.. IMPRESSION: OBSTRUCTIVE RIGHT URETERAL LITHIASIS. CHOLELITHIASIS. HEPATOSPLENOMEGALY WITH HEPATIC STEATOSIS.
--- NOTE | 2019-08-16 23:56 | PN ---
PROGRESS NOTE DATE OF SERVICE: 08/16/2019 REASON FOR FOLLOWUP: MSSA bacteremia. INTERVAL HISTORY: The patient is currently afebrile. The patient has been breathing comfortably. The patient denies having any chest pain or shortness of breath or cough. No nausea, no vomiting. No abdominal pain. No diarrhea. Overall feeling better. PHYSICAL EXAMINATION: Blood pressure 126/82 with a pulse of 106, temperature 98.1. He is 98% on room air. General description is a middle-aged male lying in bed in no distress. RESPIRATORY SYSTEM: Unlabored breathing, clear to auscultation anteriorly. HEART: S1, S2. Regular rate and rhythm. ABDOMEN: Soft, no tenderness. EXTREMITIES: No edema of feet. LABS: Hemoglobin is 13.9, white count 13, BUN of 18, creatinine 1.16. DIAGNOSTIC IMPRESSION AND PLAN: Patient with MSSA bacteremia, persistent for the last 5 days. Blood culture positive from yesterday. Unfortunately, Midline not been done as for the clearance of his bacteremia. He did have blood cultures drawn this morning. We will wait for them to finalize. We will obtain a CT abdomen and pelvis and echocardiogram. If negative, may need BRIEN. Continue supportive care. MMODL / IJN: [id number] /
[2019-08-17 07:01] LABS: Glucose,Whole Blood 266 mg/dL (75-99)
[2019-08-17] MEDS: INSULIN ASPART (NovoLOG) 100 UNIT/ML VIAL SQ SCH ×8 (07:14→21:00)
[2019-08-17] MEDS: INSULN ASP PRT/INSULIN ASPART 100 UNIT/ML 10 ML VIAL SQ SCH ×2 (07:15→17:30)
[2019-08-17] MEDS: HEPARIN SODIUM,PORCINE 5,000 UNIT/ML 1 ML VIAL SQ SCH ×3 (07:16→23:15)
[2019-08-17] MEDS: POTASSIUM CHLORIDE ER 20 MEQ TAB.ER PO SCH ×2 (07:16→21:00)
--- NOTE | 2019-08-17 11:00 | ECHOF ---
Referral Reason:MSSA bacteremia MEASUREMENTS -------- HEIGHT: 195.6 cm WEIGHT: 118.4 kg BP: 132/77 RVIDd: 3.3 cm (< 3.3) IVSd: 1.3 cm (0.6 - 1.1) LVIDd: 5.1 cm (3.9 - 5.3) LVPWd: 1.3 cm (0.6 - 1.1) IVSs: 1.9 cm LVIDs: 2.9 cm LVPWs: 1.8 cm LA Diam: 3.8 cm (2.7 - 3.8) LAESV Index (A-L): 21.68 ml/m Ao Diam: 3.2 cm (2.0 - 3.7) AV Cusp: 2.3 cm (1.5 - 2.6) MV EXCURSION: 19.132 mm (> 18.000) MV EF SLOPE: 120 mm/s (70 - 150) EPSS: 0.5 cm MV E Kirby: 0.77 m/s MV DecT: 176 ms MV A Kirby: 0.99 m/s MV E/A Ratio: 0.78 FINDINGS -------- This was a technically good study. The left ventricular size is normal. There is mild concentric left ventricular hypertrophy. Overa ll left ventricular systolic function is normal with, an EF between 60 - 65 %. The right ventricle is mildly enlarged. Normal LA size by volume 22+/-6 ml/m2. The right atrium is normal in size. Interatrial and interventricular septum intact. The aortic valve is trileaflet and appears structurally normal. There is trace to mild mitral regurgitation. The tricuspid valve appears structurally normal. The aortic root size is normal. Normal inferior vena cava with normal inspiratory collapse consistent with estimated right atrial pre ssure of 5 mmHg. There is no pericardial effusion. CONCLUSIONS -------- 1. This was a technically good study. 2. The left ventricular size is normal. 3. There is mild concentric left ventricular hypertrophy. 4. Overall left ventricular systolic function is normal with, an EF between 60 - 65 %. 5. The right ventricle is mildly enlarged. 6. Normal LA size by volume 22+/-6 ml/m2. 7. The right atrium is normal in size. 8. Interatrial and interventricular septum intact. 9. The aortic valve is trileaflet and appears structurally normal. 10. There is trace to mild mitral regurgitation. 11. The tricuspid valve appears structurally normal. 12. The aortic root size is normal. 13. Normal inferior vena cava with normal inspiratory collapse consistent with estimated right atrial pressure of 5 mmHg. 14. There is no pericardial effusion. PLYCOR OPERATOR: Ellie Gil RDCS
[2019-08-17 12:00] LABS: Glucose,Whole Blood 186 mg/dL (75-99)
--- NOTE | 2019-08-17 12:53 | P.PN ---
Subjective Patient is doing well today. He denies fever or chills No acute events overnight. Blood glucose to not well controlled. Patient is having persistent MSSA bacteremia Objective - Vital Signs Vital signs: Vital Signs Temp 98.4 F 08/17/19 07:00 Pulse 99 08/17/19 07:00 Resp 18 08/17/19 07:00 BP 139/76 08/17/19 07:00 Pulse Ox 97 08/17/19 07:00 Intake & Output 08/16/19 08/17/19 08/17/19 18:59 06:59 18:59 Intake Total 480 Balance 480 Intake: Oral 480 Other: Voiding Method Urinal # Voids 3 1 - Exam General: The patient is awake and alert, in no distress Eye: there is normal conjunctiva bilaterally. Neck: The neck is supple, there is no JVD. Cardiovascular: Normal S1-S2, no S3-S4, no murmurs. Respiratory: Lungs clear to auscultation bilaterally Gastrointestinal: Abdomen is soft, nontender Musculoskeletal: There is no pedal edema. Neurological:. Speech is normal. Skin: Skin is warm and dry - Labs CBC & Chem 7: 08/16/19 08:28 08/16/19 08:28 Labs: Abnormal Lab Results - Last 24 Hours (Table) 08/16/19 08/16/19 08/17/19 Range/Units 16:45 20:30 06:59 POC Glucose (mg/dL) 223 H 194 H 266 H (75-99) mg/dL 08/17/19 Range/Units 11:58 POC Glucose (mg/dL) 186 H (75-99) mg/dL Microbiology - Last 24 Hours (Table) 08/16/19 08:28 Blood Culture Gram Stain - Preliminary Blood 08/16/19 08:28 Blood Culture - Final Blood 08/13/19 15:33 Blood Culture - Preliminary Blood No Growth after 72 hours 08/14/19 08:29 Blood Culture Gram Stain - Final Blood Blood Culture - Final Staphylococcus aureus 08/15/19 07:34 Blood Culture Gram Stain - Preliminary Blood Blood Culture - Preliminary Staphylococcus aureus 08/11/19 10:46 Blood Culture Gram Stain - Final Blood Blood Culture - Final Staphylococcus aureus 08/11/19 10:40 Blood Culture Gram Stain - Final Blood Blood Culture - Final Staphylococcus aureus Assessment and Plan Assessment: This is a 58-year-old male with complex past medical history noted below who presented to the emergency room feeling weak and vomiting. Patient was evaluated in the ER and admitted to the hospital for further management of his medical problems noted below. 1. DKA, treated aggressively with DKA protocol. Currently off the drip. 2. Type 2 diabetes, not well controlled. A1c 13.5. NovoLog 70/30 25 units twice daily. Add NovoLog 8 units 3 times a day before each meal plus sliding scale 3. Acute kidney injury, resolved with IV fluid hydration 4. MSSA UTI and bacteremia, patient started on IV vancomycin. Repeat blood culture turned positive with evidence of persistent bacteremia. Seen and evaluated by infectious disease. Abdominal ultrasound with no obvious source. Computed tomography scan of the abdomen showed obstructive right ureteral ophiasis, awaiting urology evaluation. Echocardiogram with no reported intracardiac source. Plan to continue IV cefazolin. Awaiting repeat blood culture from this morning. We will need negative blood culture for at least 24 hours prior to discharge. Infectious disease following closely. May consider BRIEN
--- NOTE | 2019-08-17 15:55 | PN ---
PROGRESS NOTE DATE OF SERVICE: 08/17/2019 REASON FOR FOLLOWUP: MSSA bacteremia with concern for possible urinary source. INTERVAL HISTORY: The patient is currently afebrile, patient is breathing comfortably. The patient denies having any chest pain or shortness of breath or cough. No nausea. No abdominal pain, no diarrhea. PHYSICAL EXAMINATION: Blood pressure 139/76, pulse of 99, temperature 98.4. He is 97% on room air. General description is a middle-aged male, lying in bed in no distress. RESPIRATORY SYSTEM: Unlabored breathing, clear to auscultation anteriorly. HEART: S1, S2. Regular rate and rhythm. ABDOMEN: Soft, no tenderness. LABS: Blood cultures from yesterday are positive as well. A CT abdominal, pelvis shows right- sided hydronephrosis with an 8 to 10 mm stone in the ureter. DIAGNOSTIC IMPRESSION AND PLAN: Patient with MSSA bacteremia, source is likely complicated urinary tract infection. This patient did have a right ureteral stone and hydronephrosis. Urology has been consulted. Recurrent midline has to be discontinued, due to bacteremia, cefazolin 2 g q.8h to continue and monitor clinical course closely. MMODL / IJN: [id number] /
[2019-08-17 17:16] LABS: Glucose,Whole Blood 223 mg/dL (75-99)
--- NOTE | 2019-08-17 17:18 | P.GSCN ---
History of Present Illness Consult date: 08/17/19 Reason for Consult: Right ureteral calculus Requesting physician: Suzie Campbell History of present illness: The patient is a 58-year-old white male with a several year week history of weakness and confusion, associated with nausea and vomiting. Since admission, both urine and blood cultures have shown MSSA. A computed tomography scan performed yesterday revealed right hydronephrosis due to an 8-10 mm right proximal ureteral calculus. He denies any prior history of urolithiasis. Review of Systems - Constitutional Reports weakness - Gastrointestinal Reports nausea, Reports vomiting - Genitourinary Denies dysuria, Denies flank pain, Denies hematuria Past Medical History Past Medical History: Diabetes Mellitus History of Any Multi-Drug Resistant Organisms: None Reported Past Surgical History: No Surgical Hx Reported Past Anesthesia/Blood Transfusion Reactions: No Reported Reaction Past Psychological History: No Psychological Hx Reported Smoking Status: Never smoker Past Alcohol Use History: None Reported Past Drug Use History: None Reported Medications and Allergies Home Medications Medication Instructions Recorded Confirmed Type No Known Home Medications 08/11/19 08/11/19 History Allergies Allergy/AdvReac Type Severity Reaction Status Date / Time No Known Allergies Allergy Verified 08/11/19 09:01 Surgical - Exam Vital Signs Temp Pulse Resp BP Pulse Ox 97.2 F L 131 H 26 H 97/72 98 08/11/19 00:28 08/11/19 00:28 08/11/19 00:28 08/11/19 00:28 08/11/19 00:28 - General well developed, well nourished, no distress - Respiratory normal respiratory effort - Abdomen Abdomen: soft, non tender, no guarding, no rigid, no rebound - Genitourinary normal penis with no external lesions, testicles non-tender - Psychiatric oriented to time, oriented to person, oriented to place, speech is normal, memory intact Results - Labs 08/16/19 08:28 08/16/19 08:28 Abnormal Lab Results - Last 24 Hours (Table) 08/16/19 08/17/19 08/17/19 Range/Units 20:30 06:59 11:58 POC Glucose (mg/dL) 194 H 266 H 186 H (75-99) mg/dL Microbiology - Last 24 Hours (Table) 08/15/19 07:34 Blood Culture Gram Stain - Final Blood Blood Culture - Final Staphylococcus aureus 08/16/19 08:28 Blood Culture Gram Stain - Preliminary Blood 08/16/19 08:28 Blood Culture - Final Blood 08/13/19 15:33 Blood Culture - Preliminary Blood No Growth after 72 hours 08/14/19 08:29 Blood Culture Gram Stain - Final Blood Blood Culture - Final Staphylococcus aureus - Imaging CT scan - abdomen: report reviewed, image reviewed CT scan - pelvis: report reviewed, image reviewed Assessment and Plan (1) Calculus of ureter Current Visit: Yes Status: Acute Code(s): N20.1 - CALCULUS OF URETER SNOMED Code(s): 99312034 Plan: Cystoscopy, right ureteral stent insertion. Given that both urine and blood cultures show MSSA, it is probable that pyelonephritis complicated by an obstructing ureteral calculus is the cause of his underlying condition. Given this, I have suggested he undergo right ureteral stent insertion to relieve the right ureteral obstruction. This rationale has been reviewed with him, along with potential risks which include anesthesia, bleeding, infection, ureteral injury, and inability to successfully place the stent. He understands that the stone will be removed electively in several weeks, after the infection has c leared, via ESWL or ureteroscopy with laser lithotripsy. Time with Patient: Greater than 30
[2019-08-17 20:58] LABS: Glucose,Whole Blood 142 mg/dL (75-99)
[2019-08-18 07:09] LABS: Glucose,Whole Blood 280 mg/dL (75-99)
[2019-08-18] MEDS: INSULN ASP PRT/INSULIN ASPART 100 UNIT/ML 10 ML VIAL SQ SCH ×2 (07:26→17:13)
[2019-08-18] MEDS: INSULIN ASPART (NovoLOG) 100 UNIT/ML VIAL SQ SCH ×7 (07:26→21:05)
[2019-08-18] MEDS ORDERED: HYDROmorphone 0.5 MG/0.5 ML SYRINGE IVP PRN (07:49)
[2019-08-18] MEDS ORDERED: fentaNYL (PF) 50 MCG/ML 2 ML AMP IV PRN (07:49)
[2019-08-18 07:59] LABS: Basophils % (A) 0 %; Eosinophils # (A) 0.1 k/uL (0-0.7); Eosinophils % (A) 1 %; HCT 35.7 % (39.0-53.0); HGB 11.6 gm/dL (13.0-17.5); Lymphocytes # (A) 1.7 k/uL (1.0-4.8); Lymphocytes % (A) 22 %; MCH 29.3 pg (25.0-35.0); MCHC 32.6 g/dL (31.0-37.0); MCV 89.9 fL (80.0-100.0); Mean Platelet Volume 7.8; Monocytes # (A) 0.5 k/uL (0-1.0); Monocytes % (A) 7 %; Neutrophils # (A) 5.2 k/uL (1.3-7.7); Neutrophils % (A) 67 %; Platelet Count 222 k/uL (150-450); RBC 3.97 m/uL (4.30-5.90); RDW 12.3 % (11.5-15.5); WBC 7.7 k/uL (3.8-10.6)
[2019-08-18 08:06] LABS: Glucose,Whole Blood 241 mg/dL (75-99)
[2019-08-18] MEDS: LACTATED RINGERS 1,000 ML IV SCH (08:06)
[2019-08-18] MEDS ORDERED: ONDANSETRON 4 MG/2 ML VIAL IVP ONE (08:23)
[2019-08-18] MEDS ORDERED: DEXAMETHASONE SOD PHOSPHATE 10 MG/ML 1 ML VIAL IV ONE (08:23)
[2019-08-18] MEDS ORDERED: MIDAZOLAM 2 MG/2 ML VIAL IV ONE (08:25)
[2019-08-18 08:33] LABS: Calcium 8.4 mg/dL (8.4-10.2); Potassium 4.9 mmol/L (3.5-5.1)
--- NOTE | 2019-08-18 09:04 | P.CRDCN ---
History of Present Illness History of present illness: HISTORY OF PRESENTING ILLNESS This is a pleasant 58-year-old past medical history significant for diabetes mellitus. He denies prior history of coronary artery disease and does not follow in the office with a hearing instrument specialist. We have been asked to see in consultation for for BRIEN. He is currently being treated for bacteremia with MSSA on IV antibiotics. He initially presented to the hospital with symptoms of confusion, nausea and vomiting. He has been diagnosed with diabetic ketoacidosis and acute kidney injury. CT of the abdomen reveals obstructive right ureteral lithiasis, cholelithiasis, hepatosplenomegaly and hepatic steatosis. He is seen and examined resting comfortably laying flat in bed in no acute distress is no symptoms of chest pain, shortness of breath, dizziness or palpitations. Transthoracic echocardiogram obtained reveals preserved LV systolic function with ejection fraction 60-65%, no valvular abnormalities noted. DIAGNOSTICS EKG reveals sinus tachycardia with left axis deviation heart rate 128.. Chest xray negative for an acute cardiopulmonary process. Laboratory reviewed, WBC 13, hemoglobin 13.9, platelets 201, sedimentation rate 90, sodium 136, potassium 4.0, creatinine 1.16, CRP 69.2. He takes no daily cardiac medications. REVIEW OF SYSTEMS At the time of my exam: CONSTITUTIONAL: Denies fever or chills. CARDIOVASCULAR: Denies chest pain, shortness of breath, orthopnea, PND or palpitations. RESPIRATORY: Denies cough. GASTROINTESTINAL: Denies abdominal pain, diarrhea, constipation, nausea or vomiting. MUSCULOSKELETAL: Denies myalgias. NEUROLOGIC: Denies numbness, tingling or weakness. ENDOCRINE: Denies fatigue, weight change, polydipsia or polyurina. GENITOURINARY: Denies burning, hematuria or urgency with micturation. HEMATOLOGIC: Denies history of anemia or bleeding. PHYSICAL EXAMINATION Blood pressure 139/76 heart rate 99 afebrile and maintaining oxygen saturation on room air. CONSTITUTIONAL: No apparent distress. HEENT: Head is normocephalic. Pupils are equal, round. Sclerae anicteric. Mucous membranes of the mouth are moist. No JVD. No carotid bruit. CHEST EXAMINATION: Lungs are clear to auscultation. No chest wall tenderness is noted on palpation or with deep breathing. HEART EXAMINATION: Regular rate and rhythm. S1, S2 heard. No murmurs, gallops or rub. ABDOMEN: Soft, nontender. Positive bowel sounds. EXTREMITIES: 2+ peripheral pulses, no lower extremity edema and no calf tenderness. NEUROLOGIC EXAMINATION: Patient is awake, alert and oriented x3. ASSESSMENT Bacteremia with MSSA Diabetes mellitus Obesity, BMI 31 PLAN Pt has undergone a TTE that was unremarkable for any valvular abnormalities. The images were adequate and there was good visualization of the valves. The patient himself does not want to undergo any further invasive testing due to cost and insurance issues. Given the normal TTE this is a reasonable decision. Recommend continuation of IV antibiotics per ID service. Thank you kindly for this consultation. Nurse Practitioner note has been reviewed, I agree with a documented findings and plan of care. Patient was seen and examined. Past Medical History Past Medical History: Diabetes Mellitus History of Any Multi-Drug Resistant Organisms: None Reported Past Surgical History: No Surgical Hx Reported Past Anesthesia/Blood Transfusion Reactions: No Reported Reaction Past Psychological History: No Psychological Hx Reported Smoking Status: Never smoker Past Alcohol Use History: None Reported Past Drug Use History: None Reported Medications and Allergies Home Medications Medication Instructions Recorded Confirmed Type No Known Home Medications 08/11/19 08/11/19 History Allergies Allergy/AdvReac Type Severity Reaction Status Date / Time No Known Allergies Allergy Verified 08/18/19 07:50 Physical Exam Vitals: Vital Signs Temp Pulse Resp BP Pulse Ox 08/17/19 07:00 98.4 F 99 18 139/76 97 08/17/19 02:35 98.4 F 86 22 132/77 97 08/16/19 18:45 97.5 F L 112 H 16 128/81 99 08/16/19 15:00 98.1 F 106 H 18 126/82 98 Intake and Output 08/16/19 08/17/19 08/17/19 22:59 06:59 14:59 Intake Total 480 Balance 480 Intake: Oral 480 Other: # Voids 2 1 Results 08/18/19 06:35 08/18/19 06:35 Current Medications Generic Name Dose Route Start Last Admin Trade Name Freq PRN Reason Stop Dose Admin Heparin Sodium (Porcine) 5,000 unit 08/11/19 16:00 08/17/19 07:16 Heparin SQ 5,000 unit Q8HR ANDER Administration Cefazolin Sodium 2 gm/ Sodium 50 mls @ 100 mls/hr 08/15/19 00:00 08/17/19 07:16 Chloride IVPB 100 mls/hr Q8HR ANDER Administration Insulin Aspart 0 unit 08/12/19 17:30 08/17/19 07:14 Novolog SQ 6 unit ACHS ANDER Administration Protocol Insulin Aspart 25 unit 08/15/19 17:30 08/17/19 07:15 Novolog Mix 70-30 Vial SQ 25 unit AC-BID ANDER Administration Insulin Aspart 5 unit 08/16/19 12:30 08/17/19 07:14 Novolog SQ 5 unit AC-TID ANDER Administration Miscellaneous Information 1 each 08/11/19 00:38 Magnesium Per Protocol MISCELLANE DAILY PRN Per Protocol Protocol Miscellaneous Information 1 each 08/11/19 00:38 Potassium Per Protocol MISCELLANE DAILY PRN Per Protocol Miscellaneous Information 1 each 08/11/19 09:43 Phosphorus Per Protocol MISCELLANE DAILY PRN Per Protocol Protocol Potassium Chloride 20 meq 08/11/19 21:00 08/17/19 07:16 K-Dur 20 PO 20 meq BID ANDER Administration Intake and Output 08/16/19 08/17/19 08/17/19 22:59 06:59 14:59 Intake Total 480 Balance 480 Intake: Oral 480 Other: # Voids 2 1 08/16/19 08:28 08/16/19 08:28
[2019-08-18] MEDS ORDERED: ONDANSETRON 4 MG/2 ML VIAL ONE (09:59)
[2019-08-18] MEDS ORDERED: PHENYLEPHRINE-0.9% NACL SYG 1 MG/10 ML SYRINGE ONE (09:59)
[2019-08-18] MEDS ORDERED: LIDOCAINE 1% INJ 10MG/ML (20 ML MDV) ONE (09:59)
[2019-08-18] MEDS ORDERED: fentaNYL (PF) 50 MCG/ML 2 ML AMP ONE (09:59)
[2019-08-18] MEDS ORDERED: MIDAZOLAM 2 MG/2 ML VIAL ONE (09:59)
[2019-08-18] MEDS ORDERED: SUCCINYLCHOLINE CHLORIDE VIAL 200 MG/10 ML VIAL IV ONE (09:59)
[2019-08-18] MEDS ORDERED: PROPOFOL 10 MG/ML 20 ML VIAL IV ONE (09:59)
[2019-08-18] MEDS: HEPARIN SODIUM,PORCINE 5,000 UNIT/ML 1 ML VIAL SQ SCH (10:19)
[2019-08-18] MEDS ORDERED: IOPAMIDOL-370 50ML BTL INJ ONE ×2 (10:28)
[2019-08-18] MEDS ORDERED: LACTATED RINGERS 1,000 ML IV ONE (10:46)
[2019-08-18 11:07] LABS: Glucose,Whole Blood 120 mg/dL (75-99)
--- NOTE | 2019-08-18 11:07 | P.OP ---
Date of Procedure: 08/18/19 Preoperative Diagnosis: Right ureteral calculus Postoperative Diagnosis: Same Procedure(s) Performed: Cystoscopy, right retrograde pyelogram, attempted right ureteral stent insertion Anesthesia: GETA Surgeon: Alexander Blank Estimated Blood Loss (ml): 0 IV fluids (ml): 600 Pathology: none sent Condition: stable Disposition: PACU Indications for Procedure: The patient is a 58-year-old white male with a several year week history of weakness and confusion, associated with nausea and vomiting. Since admission, both urine and blood cultures have shown MSSA. A computed tomography scan performed yesterday revealed right hydronephrosis due to an 8-10 mm right proximal ureteral calculus. He denies any prior history of urolithiasis. Operative Findings: Impacted right proximal ureteral calculus, radio-opaque. Description of Procedure: The patient was taken to the operating room and placed in the dorsolithotomy position, with legs supported in Jakob stirrups. The external genitalia was prepped and draped sterilely. The 30 lens was used to introduce the 22-Italian Stortz cystoscopic sheath through the urethra and into the bladder under direct vision. The prostatic urethra showed evidence of mild lateral lobe enlargement. The bladder was examined in its entirety. Both ureteral orifices were of normal anatomic location and configuration. No tumors or foreign bodies were seen. An angle-tip 0.035 inch Glidewire was passed through the cystoscope. The right ureteral orifice was cannulated, and the Glidewire was slowly advanced up the ureter. However, the Glidewire could not be passed beyond the obstructing calculus, which was impacted. Using a 10-Italian cone-tipped catheter, a right retrograde pyelogram was performed. Only a small amount of contrast passed beyond the calculus, and the calculus could not be dislodged. A 5-Italian open- ended catheter was passed up the ureter, and the Glidewire was passed through the open-ended catheter. Multiple attempts were made once again to pass the tip of the wire beyond the calculus, but these attempts were unsuccessful. Therefore, the procedure was terminated. The bladder was emptied and the cystoscope removed. The patient tolerated the procedure well was taken to the recovery room in stable condition.
--- NOTE | 2019-08-18 11:25 | FL ---
Fluoroscopy HISTORY: Ureteral calculus 3 minutes 38 seconds fluoroscopy time supplied to the referring clinician. 1 intraoperative C-arm im ages document the procedure. See dictated report from urology.
--- NOTE | 2019-08-18 12:43 | P.PN ---
Subjective No acute events overnight. Blood glucose to not well controlled. Patient is having persistent MSSA bacteremia Objective - Vital Signs Vital signs: Vital Signs Temp 97.7 F 08/18/19 11:56 Pulse 87 08/18/19 11:56 Resp 16 08/18/19 11:56 BP 139/88 08/18/19 11:56 Pulse Ox 96 08/18/19 11:56 Intake & Output 08/17/19 08/18/19 08/18/19 18:59 06:59 18:59 Intake Total 1100 Output Total 20 Balance 1080 Weight 118.5 kg Intake: IV 1100 Output: Urine 20 Estimated Blood Loss 0 Other: Voiding Method Urinal Urinal Urinal # Voids 1 1 - Exam General: The patient is awake and alert, in no distress Eye: there is normal conjunctiva bilaterally. Neck: The neck is supple, there is no JVD. Cardiovascular: Normal S1-S2, no S3-S4, no murmurs. Respiratory: Lungs clear to auscultation bilaterally Gastrointestinal: Abdomen is soft, nontender Musculoskeletal: There is no pedal edema. Neurological:. Speech is normal. Skin: Skin is warm and dry - Labs CBC & Chem 7: 08/18/19 06:35 08/18/19 06:35 Labs: Abnormal Lab Results - Last 24 Hours (Table) 08/17/19 08/17/19 08/18/19 Range/Units 17:12 20:56 06:35 RBC 3.97 L (4.30-5.90) m/uL Hgb 11.6 L (13.0-17.5) gm/dL Hct 35.7 L (39.0-53.0) % Sodium (137-145) mmol/L Glucose (74-99) mg/dL POC Glucose (mg/dL) 223 H 142 H (75-99) mg/dL 08/18/19 08/18/19 08/18/19 Range/Units 06:35 07:08 08:04 RBC (4.30-5.90) m/uL Hgb (13.0-17.5) gm/dL Hct (39.0-53.0) % Sodium 136 L (137-145) mmol/L Glucose 222 H (74-99) mg/dL POC Glucose (mg/dL) 280 H 241 H (75-99) mg/dL 08/18/19 Range/Units 11:05 RBC (4.30-5.90) m/uL Hgb (13.0-17.5) gm/dL Hct (39.0-53.0) % Sodium (137-145) mmol/L Glucose (74-99) mg/dL POC Glucose (mg/dL) 120 H (75-99) mg/dL Microbiology - Last 24 Hours (Table) 08/17/19 07:29 Blood Culture - Preliminary Blood No Growth after 24 hours 08/15/19 07:34 Blood Culture Gram Stain - Final Blood Blood Culture - Final Staphylococcus aureus 08/16/19 08:28 Blood Culture Gram Stain - Preliminary Blood Blood Culture - Preliminary Presumptive Staph aureus 08/13/19 15:33 Blood Culture - Preliminary Blood No Growth after 96 hours Assessment and Plan Assessment: This is a 58-year-old male with complex past medical history noted below who presented to the emergency room feeling weak and vomiting. Patient was evaluated in the ER and admitted to the hospital for further management of his medical problems noted below. 1. DKA, treated aggressively with DKA protocol. Currently off the drip. 2. Type 2 diabetes, not well controlled. A1c 13.5. NovoLog 70/30 25 units twice daily. NovoLog 10 units 3 times a day before each meal plus sliding scale 3. Acute kidney injury, resolved with IV fluid hydration 4. MSSA UTI and bacteremia, patient started on IV vancomycin. Repeat blood culture turned positive with evidence of persistent bacteremia. Seen and evalu ated by infectious disease. Abdominal ultrasound with no obvious source. Computed tomography scan of the abdomen showed obstructive right ureteral ophiasis, awaiting urology evaluation. Echocardiogram with no reported intracardiac source. Plan to continue IV cefazolin. 5. Right ureteral stone: Seen and evaluated by urology. Unsuccessful attempt to place stent. Plan for nephrostomy tube tomorrow. Awaiting repeat blood culture from this morning. We will need negative blood culture for at least 24 hours prior to discharge. Infectious disease following closely.
--- NOTE | 2019-08-18 13:14 | CDI ---
Documentation Clarification Form Date: 08/18/2019 12:48:23 PM From: Tatiana Lamb RN CCDS Admit Date: 08/11/2019 04:39:00 AM Patient Name: Adrien Nguyen Visit Number: [id number] Discharge Date: ATTENTION: The Clinical Documentation Specialists (CDI) and [facility] Coding Staff appreciate your assistance in clarifying documentation. Please respond to the clarification below the line at the bottom and electronically sign. The CDI & [facility] Coding staff will review the response and follow-up if needed. Please note: Queries are made part of the Legal Health Record. If you have any questions, please contact the author of this message via ITS. Dr. Magdaleno Murillo 58-year-old male presents to the ED with Confusion and lethargy. History/Risk Factors: The patient has a history of DM2. Taken from the H&P 08/10 - The patient couldnt tolerate many foods due to nausea and vomiting. The patient hasnt been taking medication for his Type 2 DM Clinical Indicators: 08/10 WBC: 41.7 08/10 Lactic acid: 8.5 08/10 Urine culture: Staphylococcus aureus 08/10 Blood cultures: Staphylococcus aureus; 08/12: Staphylococcus aureus; 08/14: Staphylococcus aureus 08/10 Vital signs on admission: B/P: 97/72; HR: 131; Temp: 97.2; RR: 26; SpO2: 98% 4.5L nasal cannula Treatment: ID Progress Note 08/16: Patient with MSSA bacteremia, source is likely complicated urinary tract infection. The patient did have a right ureteral stone and hydronephrosis Antibiotics: 08/10 Zosyn Ivpb d/c 08/12, 08/12 Vancomycin Ivpb d/c 08/13; 08/14 Cefazolin Ivpb IV Bolus: 08/10 0.9ns 1L bolus followed by 100cchr d/c 08/12, In your professional opinion, please clarify if these findings signify one of the following conditions, whether the condition is POA, and cause, if known: Sepsis POA Sepsis Ruled Out Other, please specify Unable to determine Identify the (suspected) organism Link or clarify if there is associated (due to/with): Organ failure Shock SIRS Criteria (2 or more of the following may indicate SIRS): -Temperature < 96.8F (36C) or > 101.0F (38.3C) -Heart Rate > 90 bpm -Respiratory Rate > 20 breaths/min or PaCO2 < 32 mmHg -White Blood Cell Count > 12,000 or < 4,000 cells/mm3 or > 10% bands -Lactate >2.0 mmol/L (>4.0 is equivalent to septic shock) (Last Revision: June 2017) MTDD
--- NOTE | 2019-08-18 13:18 | P.PN ---
Progress Note - Text Progress Note Date: 08/18/19 d/w patient the risks and benefits of proposed right nephrostomy tube placement. Patient understands and agrees to proceed, requests to have procedure tomorrow. Questions answered.
--- NOTE | 2019-08-18 13:34 | CDI ---
Documentation Clarification Form Date: 08/18/2019 01:16:03 PM From: Tatiana Lamb RN CCDS Admit Date: 08/11/2019 04:39:00 AM Patient Name: Adrien Nguyen Visit Number: [id number] Discharge Date: ATTENTION: The Clinical Documentation Specialists (CDI) and [facility] Coding Staff appreciate your assistance in clarifying documentation. Please respond to the clarification below the line at the bottom and electronically sign. The CDI & [facility] Coding staff will review the response and follow-up if needed. Please note: Queries are made part of the Legal Health Record. If you have any questions, please contact the author of this message via ITS. Dr. Magdaleno Murillo The patient presented to the hospital with altered mental status, confusion and vomiting. History/Risk Factors: The patient has a history of DM2. Taken from the H&P 08/10 - The patient couldnt tolerate many foods due to nausea and vomiting. The patient hasnt been taking medication for his Type 2 DM Clinical Indicators: 08/10 Vital signs: B/P: 97/72; HR: 131; Temp: 97.2; RR: 26; SpO2: 98% 4.5L nasal ED Lung assessment 08/10: Respiratory distress, Kussmaul respirations. H&P Lung assessment 08/10: tachypnea with minimal accessory muscle use 08/10 VBG: pH : 6.82; pCO2: 39; HCO3: 6 Treatment: Oxygen Via Nasal Cannula 08/10 00:28 4.5L; 08/10 09:16 2L; 08/10 20:00: Room air In your professional opinion, can you please clarify if these findings signify one of the following conditions? Acute Respiratory Failure Acute Respiratory Insufficiency Other Diagnosis, please specify Unable to determine Specificity: If known, further specify (if known): With hypercapnia? (pCO2 >50 and pH <7.35) With hypoxia? (pO2 <60 mm Hg or SpO2 <91% on room air) (Last Query Form Revision: November 2018) SHERITAD
[2019-08-18] MEDS: LISINOPRIL 5 MG TAB PO SCH (13:45)
[2019-08-18 16:47] LABS: Glucose,Whole Blood 438 mg/dL (75-99)
[2019-08-18 20:41] LABS: Glucose,Whole Blood 291 mg/dL (75-99)
[2019-08-19 07:05] LABS: Glucose,Whole Blood 225 mg/dL (75-99)
[2019-08-19 07:12] LABS: Basophils # (A) 0.1 k/uL (0-0.2); Basophils % (A) 0 %; Eosinophils # (A) 0.1 k/uL (0-0.7); Eosinophils % (A) 1 %; HCT 37.2 % (39.0-53.0); HGB 12.5 gm/dL (13.0-17.5); Lymphocytes % (A) 20 %; MCH 30.1 pg (25.0-35.0); MCHC 33.6 g/dL (31.0-37.0); MCV 89.5 fL (80.0-100.0); Mean Platelet Volume 7.5; Monocytes # (A) 0.5 k/uL (0-1.0); Monocytes % (A) 4 %; Neutrophils # (A) 7.5 k/uL (1.3-7.7); Neutrophils % (A) 73 %; Platelet Count 259 k/uL (150-450); RBC 4.15 m/uL (4.30-5.90); RDW 12.1 % (11.5-15.5); WBC 10.3 k/uL (3.8-10.6)
[2019-08-19 07:21] LABS: African American GFR (CKD) >90 (>60 ml/min/1.73 sqM); Anion Gap 5 mmol/L; Blood Urea Nitrogen 22 mg/dL (9-20); Calcium 8.5 mg/dL (8.4-10.2); Carbon Dioxide 28 mmol/L (22-30); Chloride 104 mmol/L (98-107); Glucose 230 mg/dL (74-99); Non-African American GFR(CKD) 79 (>60 ml/min/1.73 sqM); Potassium 4.2 mmol/L (3.5-5.1); Sodium 137 mmol/L (137-145)
[2019-08-19] MEDS: LISINOPRIL 5 MG TAB PO SCH (08:48)
[2019-08-19] MEDS: INSULIN ASPART (NovoLOG) 100 UNIT/ML VIAL SQ SCH ×7 (08:49→21:29)
--- NOTE | 2019-08-19 09:23 | CDI ---
Documentation Clarification Form Date: 08/18/2019 01:16:03 PM From: Tatiana Lamb RN CCDS Email: [email or web address] Admit Date: 08/11/2019 04:39:00 AM Patient Name: Adrien Nguyen Visit Number: [id number] Discharge Date: ATTENTION: The Clinical Documentation Specialists (CDI) and [facility] Coding Staff appreciate your assistance in clarifying documentation. Please respond to the clarification below the line at the bottom and electronically sign. The CDI & [facility] Coding staff will review the response and follow-up if needed. Please note: Queries are made part of the Legal Health Record. If you have any questions, please contact the author of this message via ITS. Dr. Magdaleno Murillo The patient presented to the hospital with altered mental status, confusion and vomiting. History/Risk Factors: The patient has a history of DM2. Taken from the H&P 08/10 - The patient couldnt tolerate many foods due to nausea and vomiting. The patient hasnt been taking medication for his Type 2 DM Clinical Indicators: 08/10 Vital signs: B/P: 97/72; HR: 131; Temp: 97.2; RR: 26; SpO2: 98% 4.5L nasal ED Lung assessment 08/10: Respiratory distress, Kussmaul respirations. H&P Lung assessment 08/10: tachypnea with minimal accessory muscle use 08/10 VBG: pH : 6.82; pCO2: 39; HCO3: 6 Treatment: Oxygen Via Nasal Cannula 08/10 00:28 4.5L; 08/10 09:16 2L; 08/10 20:00: Room air In your professional opinion, can you please clarify if these findings signify one of the following conditions? Acute Respiratory Failure Acute Respiratory Insufficiency Other Diagnosis, please specify Unable to determine Specificity: If known, further specify (if known): With hypercapnia? (pCO2 >50 and pH <7.35) With hypoxia? (pO2 <60 mm Hg or SpO2 <91% on room air) (Last Query Form Revision: November 2018) SHERITAD
--- NOTE | 2019-08-19 09:24 | CDI ---
Documentation Clarification Form Date: 08/18/2019 12:48:23 PM From: Tatiana Lamb RN CCDS Email: [email or web address] Admit Date: 08/11/2019 04:39:00 AM Patient Name: Adrien Nguyen Visit Number: [id number] Discharge Date: ATTENTION: The Clinical Documentation Specialists (CDI) and [facility] Coding Staff appreciate your assistance in clarifying documentation. Please respond to the clarification below the line at the bottom and electronically sign. The CDI & [facility] Coding staff will review the response and follow-up if needed. Please note: Queries are made part of the Legal Health Record. If you have any questions, please contact the author of this message via ITS. Dr. Magdaleno Murillo 58-year-old male presents to the ED with Confusion and lethargy. History/Risk Factors: The patient has a history of DM2. Taken from the H&P 08/10 - The patient couldnt tolerate many foods due to nausea and vomiting. The patient hasnt been taking medication for his Type 2 DM Clinical Indicators: 08/10 WBC: 41.7 08/10 Lactic acid: 8.5 08/10 Urine culture: Staphylococcus aureus 08/10 Blood cultures: Staphylococcus aureus; 08/12: Staphylococcus aureus; 08/14: Staphylococcus aureus 08/10 Vital signs on admission: B/P: 97/72; HR: 131; Temp: 97.2; RR: 26; SpO2: 98% 4.5L nasal cannula Treatment: ID Progress Note 08/16: Patient with MSSA bacteremia, source is likely complicated urinary tract infection. The patient did have a right ureteral stone and hydronephrosis Antibiotics: 08/10 Zosyn Ivpb d/c 08/12, 08/12 Vancomycin Ivpb d/c 08/13; 08/14 Cefazolin Ivpb IV Bolus: 08/10 0.9ns 1L bolus followed by 100cchr d/c 08/12, In your professional opinion, please clarify if these findings signify one of the following conditions, whether the condition is POA, and cause, if known: Sepsis POA Sepsis Ruled Out Other, please specify Unable to determine Identify the (suspected) organism Link or clarify if there is associated (due to/with): Organ failure Shock SIRS Criteria (2 or more of the following may indicate SIRS): -Temperature < 96.8F (36C) or > 101.0F (38.3C) -Heart Rate > 90 bpm -Respiratory Rate > 20 breaths/min or PaCO2 < 32 mmHg -White Blood Cell Count > 12,000 or < 4,000 cells/mm3 or > 10% bands -Lactate >2.0 mmol/L (>4.0 is equivalent to septic shock) (Last Revision: June 2017) MTDD
[2019-08-19] MEDS: INSULN ASP PRT/INSULIN ASPART 100 UNIT/ML 10 ML VIAL SQ SCH ×3 (10:13→17:59)
[2019-08-19 11:50] LABS: Glucose,Whole Blood 216 mg/dL (75-99)
--- NOTE | 2019-08-19 12:40 | P.PN ---
Subjective No acute events overnight. Blood glucose to not well controlled. Patient is scheduled for nephrostomy today Objective - Vital Signs Vital signs: Vital Signs Temp 98.4 F 08/19/19 06:47 Pulse 87 08/19/19 07:42 Resp 17 08/19/19 07:42 BP 121/83 08/19/19 06:47 Pulse Ox 97 08/19/19 06:47 Intake & Output 08/18/19 08/19/19 08/19/19 18:59 06:59 18:59 Intake Total 1100 Output Total 40 20 Balance 1060 -20 Weight 118.5 kg Intake: IV 1100 Oral 0 Output: Urine 40 20 Estimated Blood Loss 0 Other: Voiding Method Urinal Urinal Urinal # Voids 2 2 2 - Exam General: The patient is awake and alert, in no distress Eye: there is normal conjunctiva bilaterally. Neck: The neck is supple, there is no JVD. Cardiovascular: Normal S1-S2, no S3-S4, no murmurs. Respiratory: Lungs clear to auscultation bilaterally Gastrointestinal: Abdomen is soft, nontender Musculoskeletal: There is no pedal edema. Neurological:. Speech is normal. Skin: Skin is warm and dry - Labs CBC & Chem 7: 08/19/19 06:45 08/19/19 06:45 Labs: Abnormal Lab Results - Last 24 Hours (Table) 08/18/19 08/18/19 08/19/19 Range/Units 16:43 20:39 06:45 RBC 4.15 L (4.30-5.90) m/uL Hgb 12.5 L (13.0-17.5) gm/dL Hct 37.2 L (39.0-53.0) % BUN (9-20) mg/dL Glucose (74-99) mg/dL POC Glucose (mg/dL) 438 H 291 H (75-99) mg/dL 08/19/19 08/19/19 08/19/19 Range/Units 06:45 06:47 11:39 RBC (4.30-5.90) m/uL Hgb (13.0-17.5) gm/dL Hct (39.0-53.0) % BUN 22 H (9-20) mg/dL Glucose 230 H (74-99) mg/dL POC Glucose (mg/dL) 225 H 216 H (75-99) mg/dL Microbiology - Last 24 Hours (Table) 08/17/19 07:29 Blood Culture - Preliminary Blood No Growth after 48 hours 08/16/19 08:28 Blood Culture Gram Stain - Final Blood Blood Culture - Final Staphylococcus aureus 08/13/19 15:33 Blood Culture - Preliminary Blood No Growth after 120 hours Assessment and Plan Assessment: This is a 58-year-old male with complex past medical history noted below who presented to the emergency room feeling weak and vomiting. Patient was evaluated in the ER and admitted to the hospital for further management of his medical problems noted below. 1. DKA, treated aggressively with DKA protocol. Currently off the drip. 2. Type 2 diabetes, not well controlled. A1c 13.5. NovoLog 70/30 increased to 30 units twice daily. NovoLog 10 units 3 times a day before each meal plus sliding scale 3. Acute kidney injury, resolved with IV fluid hydration 4. MSSA UTI and bacteremia, patient initially started on IV vancomycin. Repeat blood culture turned positive with evidence of persistent bacteremia. First negative blood culture on 08/16. Seen and evaluated by infectious disease. Abdominal ultrasound with no obvious source. Computed tomography scan of the abdomen showed obstructive right ureteral ophiasis, patient was seen and evaluated by urology. Unsuccessful attempt to place a stent. Patient scheduled for nephrostomy tube today.. Echocardiogram with no reported intracardiac source. Plan to continue IV cefazolin. 5. Right ureteral stone: Seen and evaluated by urology. Unsuccessful attempt to place stent. Plan for nephrostomy tube today. 6. Acute respiratory failure on presentation secondary to altered mental status now resolved. 7. Sepsis on presentation secondary to above Patient has midline to left upper extremity. When most likely need 14 days of antibiotics starting from 616. Discuss further with infectious disease. Patient does not have insurance and will need antibiotic to be set up with social work help
--- NOTE | 2019-08-19 13:03 | P.PN ---
Progress Note - Text Progress Note Date: 08/19/19 The patient has no specific complaints at this time. He is afebrile with stable vital signs. His WBC count is normal. His right proximal ureteral calculus was impacted, and it was not possible to place a ureteral stent yesterday. He will undergo placement of a right percutaneous nephrostomy tube later today. We discussed alternative treatment options for his right proximal ureteral calculus, these being ureteroscopy with laser lithotripsy, ESWL, and percutaneous nephrolithotomy. The pros, cons, and risks of each were reviewed. He has elected to undergo ESWL, likely on 09/06/2019.
[2019-08-19] MEDS ORDERED: IV FLUID CONTINUATION 1,000 ML IV ONE (14:39)
[2019-08-19] MEDS: fentaNYL (PF) 50 MCG/ML 2 ML AMP IV ONE ×2 (14:50→15:12)
[2019-08-19] MEDS ORDERED: MIDAZOLAM 2 MG/2 ML VIAL IV ONE ×2 (14:50→14:52)
[2019-08-19] MEDS: LIDOCAINE 1% INJ 10MG/ML (10 ML MDV) SQ ONE ×2 (14:51→15:04)
[2019-08-19] MEDS ORDERED: fentaNYL (PF) 50 MCG/ML 2 ML AMP IV ONE ×2 (14:52→15:25)
[2019-08-19] MEDS ORDERED: LIDOCAINE 1% INJ 10MG/ML (10 ML MDV) SQ ONE (14:54)
[2019-08-19 17:04] LABS: Glucose,Whole Blood 170 mg/dL (75-99)
[2019-08-19 18:22] VITALS: RESP 16
[2019-08-19] MEDS: LACTATED RINGERS 1,000 ML IV SCH (20:01)
[2019-08-19 20:14] LABS: Glucose,Whole Blood 141 mg/dL (75-99)
--- NOTE | 2019-08-19 23:35 | PN ---
PROGRESS NOTE DATE OF SERVICE: 08/19/2019 REASON FOR FOLLOWUP: MSSA bacteremia secondary to right-sided pyelonephritis. INTERVAL HISTORY: The patient is currently afebrile, has been breathing comfortably. The patient denies having any chest pain or shortness of breath or cough. No nausea, no vomiting. No abdominal pain or diarrhea. PHYSICAL EXAMINATION: Blood pressure 116/67 with a pulse of 98, temperature 98.2. He is 97% on room air. General description is a middle-aged male up in the bed in no distress. RESPIRATORY SYSTEM: Unlabored breathing, clear to auscultation anteriorly. HEART: S1, S2. Regular rate and rhythm. ABDOMEN: Soft, no tenderness. LABS: Hemoglobin is 12.5, white count 10.3, BUN of 22, creatinine 1.04. DIAGNOSTIC IMPRESSION AND PLAN: Patient with MSSA bacteremia source is likely complicated urinary tract infection with obstructive kidney, ureteral stents could not be placed; hence, scheduling for the nephrostomy tube placement. Patient will continue with cefazolin. The current was placed while the patient still bacteremic. Continue with supportive care. MMODL / IJN: [id number] /
[2019-08-20 07:04] LABS: Glucose,Whole Blood 187 mg/dL (75-99)
[2019-08-20 07:12] LABS: Basophils % (A) 0 %; Eosinophils # (A) 0.1 k/uL (0-0.7); Eosinophils % (A) 1 %; HCT 32.1 % (39.0-53.0); HGB 10.6 gm/dL (13.0-17.5); Lymphocytes # (A) 1.5 k/uL (1.0-4.8); Lymphocytes % (A) 21 %; MCH 29.5 pg (25.0-35.0); MCHC 32.9 g/dL (31.0-37.0); MCV 89.7 fL (80.0-100.0); Mean Platelet Volume 7.8; Monocytes # (A) 0.3 k/uL (0-1.0); Monocytes % (A) 5 %; Neutrophils # (A) 5.1 k/uL (1.3-7.7); Neutrophils % (A) 72 %; Platelet Count 249 k/uL (150-450); RBC 3.57 m/uL (4.30-5.90); WBC 7.1 k/uL (3.8-10.6)
[2019-08-20 07:21] LABS: African American GFR (CKD) >90 (>60 ml/min/1.73 sqM); Anion Gap 3 mmol/L; Blood Urea Nitrogen 21 mg/dL (9-20); Calcium 8.2 mg/dL (8.4-10.2); Carbon Dioxide 29 mmol/L (22-30); Chloride 105 mmol/L (98-107); Glucose 187 mg/dL (74-99); Non-African American GFR(CKD) 79 (>60 ml/min/1.73 sqM); Sodium 137 mmol/L (137-145)
[2019-08-20 08:25] VITALS: BP 135/86; PULSE 81; TEMP 98.2
[2019-08-20] MEDS: LISINOPRIL 5 MG TAB PO SCH (08:29)
[2019-08-20] MEDS: INSULIN ASPART (NovoLOG) 100 UNIT/ML VIAL SQ SCH ×4 (08:30→12:56)
--- NOTE | 2019-08-20 08:30 | P.PN ---
Progress Note - Text Progress Note Date: 08/20/19 The patient remains afebrile. His WBC count is normal. A right percutaneous nephrostomy tube was successfully placed yesterday. It is draining blood-tinged urine. He may be discharged home on antibiotics once medically stable. Arrangements will be made for him to undergo ESWL on 09/06/2019.
[2019-08-20] MEDS: INSULN ASP PRT/INSULIN ASPART 100 UNIT/ML 10 ML VIAL SQ SCH (08:32)
--- NOTE | 2019-08-20 10:05 | IR ---
EXAMINATION TYPE: IR nephrostomy, US guide intraoperative DATE OF EXAM: 08/19/2019 COMPARISON: CT dated 08/16/2019 HISTORY: Hydronephrosis, ureteral obstruction PROCEDURE: Maximal barrier technique was utilized. The skin overlying the right kidney was localized using ultrasound and the overlying skin prepped and draped. Ultrasound was utilized with sterile te chnique. Lidocaine used for local anesthesia. Skin arnold was made with a scalpel. Access was gained under ultrasound with a 22-gauge needle to the collecting system of the right kidney. Urine returned in the hub of the needle. Gentle hand-injection of air was performed under fluoroscopic observation . A suitable posterior calyx was chosen and the overlying skin was anesthetized with Lidocaine and a skin arnold made with a scalpel. A 21-gauge needle was advanced into the posterior calyx under direct fluoroscopic observation. Urine returned in the hub of the needle. A 0.018 inch wire was advanced. The access site was dilated and subsequently an 8.5 Kittitian catheter was advanced over wire in the r enal pelvis and fixed in place. Urine returned in the hub of the catheter. Gentle hand injection of contrast material performed verifying placement spot image. Catheter was fixed to the skin with 2-0 silk and a sterile dressing was placed. The patient remained in stable condition without complicatio n. The patient was discharged to observation. IMPRESSION: STATUS POST 8.5 Kittitian NEPHROSTOMY TUBE PLACEMENT WITH ULTRASOUND AND FLUOROSCOPIC RODERICK BENEDICT. THIS PROCEDURE WAS PERFORMED BY THE UNDERSIGNED. 4.4 minutes fluoroscopy time, 112 images docum ent the procedure.
[2019-08-20] MEDS: LACTATED RINGERS 1,000 ML IV SCH (10:26)
[2019-08-20 12:01] LABS: Glucose,Whole Blood 135 mg/dL (75-99)
--- NOTE | 2019-08-20 13:58 | P.DS ---
Providers Date of admission: 08/11/19 04:39 Expected date of discharge: 08/20/19 Attending physician: Zeus Torres MD Consults: 08/11/19 06:14 Consult Physician Stat Consulting Provider: Sander May Consult Reason/Comments: DKA Do you want consulting provider notified?: Already Contacted 08/13/19 14:24 Consult Physician Routine Consulting Provider: Suzie Campbell Consult Reason/Comments: bacteremia Do you want consulting provider notified?: Yes 08/17/19 08:16 Consult Physician Routine Consulting Provider: Thiago Motley Consult Reason/Comments: MSSA bacteremia BRIEN? Do you want consulting provider notified?: Yes 08/17/19 10:13 Consult Physician Routine Consulting Provider: Eugene Caba Consult Reason/Comments: right sided renal stone and hydronephrosis Do you want consulting provider notified?: Yes 08/18/19 11:07 Consult Physician Routine Consulting Provider: Gabriel Lance Consult Reason/Comments: Right nephrostomy tube insertion Do you want consulting provider notified?: Yes Primary care physician: Stated None Hospital Course: The patient is a 58-year-old male with a PMH of type II DM who presented to the ED with confusion and lethargy. The patient had reportedly been doing a ketogenic diet and had been noncompliant with his diabetes medications. The patient was noted to be in diabetic ketoacidosis with altered mentation and was admitted to the medical ICU with insulin infusion therapy. The patient's mentation and overall condition gradually improved, though the patient did develop gram-positive bacteremia with subsequent confirmation as MSSA. A CT abdomen was performed which revealed hydronephrosis with a 8-10 mm right ureteral calculus. Stenting was unsuccessful and a subsequent right nephrostomy tube was placed. Infectious disease was consulted and the patient was placed on daptomycin with a midline and plans to undergo transfusions of the medication as an outpatient at the [facility]. The patient was also initiated on insulin therapy with teaching by the diabetic nurse educator. Patient was seen and evaluated at the bedside on the day of discharge. He reported feeling well and denied any active complaints. He reported minimal discomfort at the site of the tube placement but otherwise denied fever, chills, dysuria, nausea, vomiting, chest pain, or shortness of breath. He is ready and agreeable for discharge. Physical Examination General: Non-toxic, in no acute distress, appears stated age, obese HEENT: NC/AT, anicteric sclerae, moist conjunctiva, no lid-lag, PERRLA Cardiovascular: S1/S2 wnl, no murmurs, rubs, or gallops Lungs: Clear to auscultation, normal respiratory effort, no accessory muscle use Abdominal: Soft, non-tender, non-distended, no guarding, rebound, or rigidity, right nephrostomy tube in place with overlying dressing clean and dry Skin: Warm, dry Extremities: No edema or contractures Psychiatric: Alert and oriented to person, place and time, appropriate affect Neuro: CN II-XII grossly intact, Strength 5/5 in all 4 extremities, Speech intact, Sensation to light touch grossly intact throughout Discharge diagnosis: Diabetic ketoacidosis in setting of type II DM; MSSA bacteremia; right ureteral stent status post nephrostomy tube placement; sepsis on presentation, now resolved; CANELO now resolved; HTN A total of 40 minutes of time were spent preparing this complex discharge summary. Patient Condition at Discharge: Stable Plan - Discharge Summary Discharge Rx Participant: Yes New Discharge Prescriptions: New DAPTOmycin [Daptomycin] 700 mg IV DAILY #14 vial INSULIN ASPART (NovoLOG) [NovoLOG (formulary)] 10 unit SQ AC-TID #3 vial Insuln Asp Prt/Insulin Aspart [NovoLOG MIX 70-30 VIAL] 30 unit SQ AC-BID #3 vial Lisinopril [Zestril] 5 mg PO DAILY #30 tab Syringe and Needle,Insulin,1Ml [Insulin Syringe 29G 1/2" 1ml] 1 syr SQ DIRECTED #100 syr Lancets 1 each MC TID #100 each Discharge Medication List DAPTOmycin [Daptomycin] 700 mg IV DAILY #14 vial 08/20/19 [Rx] INSULIN ASPART (NovoLOG) [NovoLOG (formulary)] 10 unit SQ AC-TID #3 vial 08/20/19 [Rx] Insuln Asp Prt/Insulin Aspart [NovoLOG MIX 70-30 VIAL] 30 unit SQ AC-BID #3 vial 08/20/19 [Rx] Lancets 1 each MC TID #100 each 08/20/19 [Rx] Lisinopril [Zestril] 5 mg PO DAILY #30 tab 08/20/19 [Rx] Syringe and Needle,Insulin,1Ml [Insulin Syringe 29G 1/2" 1ml] 1 syr SQ DIRECTED #100 syr 08/20/19 [Rx] Follow up Appointment(s)/Referral(s): None,Stated [Primary Care Provider] - 1-2 days [facility] [NON-STAFF] - () Suzie Campbell MD [STAFF PHYSICIAN] - 1 Week Patient Instructions/Handouts: Diabetic Ketoacidosis (DC), Type 2 Diabetes in Adults: New Diagnosis (DC), Nephrostomy Tube Care (DC) Activity/Diet/Wound Care/Special Instructions: Out[facility]: [phone]. First appointment: 08/21/2019 at 2:00 p.m. Come to the main desk and they will direct you to the Peds Unit for the IV antibiotic infusion. office will call with follow up appointment Discharge Disposition: HOME SELF-CARE
--- NOTE | 2019-08-20 14:17 | PN ---
PROGRESS NOTE DATE OF SERVICE: 08/20/2019 REASON FOR FOLLOWUP: MSSA bacteremia secondary to right-sided complicated UTI. INTERVAL HISTORY: The patient is currently afebrile. The patient is breathing comfortably. The patient is status post nephrostomy tube placement. The patient denies having any chest pain, no shortness of breath or cough. No nausea, vomiting, abdominal pain or diarrhea. PHYSICAL EXAMINATION: Blood pressure 135/86, pulse 81, temperature 98.2, he is 98% on room air. General description is a middle-aged male, lying in bed in no distress. RESPIRATORY SYSTEM: Unlabored breathing, clear to auscultation anteriorly. HEART: S1, S2. Regular rate and rhythm. ABDOMEN: Soft, no tenderness. LABS: Hemoglobin is 10.8, white count 7.1. BUN of 21, creatinine 1.04. DIAGNOSTIC IMPRESSION AND PLAN: Patient with MSSA bacteremia, source of infected right-sided obstructed kidney, status post nephrostomy tube placement. Blood cultures from 08/17 has been negative as the patient has 2 port infusion for daily antibiotic. Antibiotic was switched over to daptomycin 6 mg/kg for 2 weeks. Prescription provided to the binder caser and close outpatient followup. MMODL / IJN: [id number] /
== END 2019-08-20 14:00 | disposition home or self-care (01) | DRG 853 ==
LOC: EC 00:22 → 2SICU 04:39 → 4SSUR 08-12 16:57
PROVIDERS: ADMIT Internal Medicine; ATTEND Internal Medicine
PROC: 05HC33Z Insertion of Infusion Device into Left Basilic Vein, Percutaneous Approach (ICD-10-PCS; 2019-08-16)
PROC: BT1D1ZZ Fluoroscopy of Right Kidney, Ureter and Bladder using Low Osmolar Contrast (ICD-10-PCS; 2019-08-18)
PROC: 0T133JD Bypass Right Kidney Pelvis to Cutaneous with Synthetic Substitute, Percutaneous Approach (ICD-10-PCS; principal; 2019-08-19 13:00)
DX: A41.01 Sepsis due to Methicillin susceptible Staphylococcus aureus (principal); E11.10 Type 2 diabetes mellitus with ketoacidosis without coma; G92 Toxic encephalopathy; J96.00 Acute respiratory failure, unspecified whether with hypoxia or hypercapnia; K85.90 Acute pancreatitis without necrosis or infection, unspecified; N13.6 Pyonephrosis; N17.9 Acute kidney failure, unspecified; E87.2 Acidosis; R16.2 Hepatomegaly with splenomegaly, not elsewhere classified; E83.39 Other disorders of phosphorus metabolism; K76.0 Fatty (change of) liver, not elsewhere classified; D75.1 Secondary polycythemia; E66.9 Obesity, unspecified; E86.0 Dehydration; T50.996A Underdosing of other drugs, medicaments and biological substances, initial encounter; E86.1 Hypovolemia; E87.6 Hypokalemia; I10 Essential (primary) hypertension; K80.20 Calculus of gallbladder without cholecystitis without obstruction; R31.0 Gross hematuria; Z11.59 Encounter for screening for other viral diseases; Z68.31 Body mass index [BMI] 31.0-31.9, adult; Z91.128 Patient's intentional underdosing of medication regimen for other reason
CPT/HCPCS: 36410; 36415; 36600; 50433; 71045; 74176; 74420; 76700; 76937; 80048; 80051; 80053; 81001; 82009; 82150; 82565; 82803; 82805; 82947; 83036; 83605; 83690; 83735; 84075; 84100; 84484; 84520; 85025; 85652; 86140; 87040; 87077; 87086; 87186; 93005; 93306; 96360; 96365; 96366; 99291

== ENCOUNTER 2019-10-13 11:07 | Day surgery (SDC) | payer OTHER ==
[2019-10-07 14:56] VITALS: BMI 31.4
--- NOTE | 2019-10-10 07:11 | P.GSHP ---
History of Present Illness H&P Date: 10/03/19 Chief Complaint: Right hydronephrosis The patient is a 58-year-old white male with a several year week history of weakness and confusion, associated with nausea and vomiting. Since admission, both urine and blood cultures have shown MSSA. A CT scan revealed right hydronephrosis due to an 8-10 mm right proximal ureteral calculus. He denies any prior history of urolithiasis. Right ureteral stent placement was unsuccessful, so he underwent insertion of a right percutaneous nephrolithotomy. He subsequently underwent ESWL. A ureteral stent was placed at that time, and the nephrostomy tube removed. - Constitutional Constitutional: Reports weakness, Denies chills, Denies fever - Gastrointestinal Gastrointestinal: Reports nausea, Reports vomiting - Genitourinary (Female) Genitourinary: Denies dysuria, Denies flank pain, Denies hematuria Past Medical History Past Medical History: Diabetes Mellitus Additional Past Medical History / Comment(s): kidney stone lodged in ureter History of Any Multi-Drug Resistant Organisms: None Reported Past Surgical History: Tonsillectomy Past Anesthesia/Blood Transfusion Reactions: No Reported Reaction Past Psychological History: No Psychological Hx Reported Past Alcohol Use History: None Reported Past Drug Use History: None Reported Medications and Allergies Home Medications Medication Instructions Recorded Confirmed Type lisinopriL [Zestril] 5 mg PO DAILY #30 tab 08/20/19 10/07/19 Rx Acetaminophen Tab [Tylenol] 650 mg PO Q6H PRN 10/07/19 10/07/19 History INSULIN ASPART (NovoLOG) [NovoLOG See Protocol SQ AC-TID 10/07/19 10/07/19 History (formulary)] Insulin Glargine [Lantus] 20 unit SQ HS 10/07/19 10/07/19 History Levofloxacin [Levaquin] 500 mg PO DAILY 10/07/19 10/07/19 History metFORMIN HCL [Glucophage] 500 mg PO HS 10/07/19 10/07/19 History Allergies Allergy/AdvReac Type Severity Reaction Status Date / Time No Known Allergies Allergy Verified 10/07/19 13:03 Results - Imaging CT scan - abdomen: report reviewed, image reviewed Assessment and Plan (1) Calculus of ureter Status: Acute Code(s): N20.1 - CALCULUS OF URETER SNOMED Code(s): 36154788 Plan: Cystoscopy, right ureteral stent removal, right ureteroscopy with Holmium laser lithotripsy and possible stone basketing. The procedure has been reviewed in detail with the patient. He is aware of potential risks, which include anesthesia, bleeding, infection, and ureteral injury.
[~2019-10-13 11:07] MED LIST: DEXAMETHASONE SOD PHOSPHATE 10 MG/ML 1 ML VIAL IV ONE; HYDROmorphone 0.5 MG/0.5 ML SYRINGE IVP PRN; LACTATED RINGERS 1,000 ML IV SCH; MIDAZOLAM 2 MG/2 ML VIAL IV PRN; ONDANSETRON 4 MG/2 ML VIAL IVP ONE; SCOPOLAMINE 1.5MG/72HR PATCH TRANSDERM ONE; ceFAZolin 3 GM in SODIUM CHLORIDE 0.9% 100 ML IVPB ONE
--- NOTE | 2019-10-13 11:32 | XR ---
KUB HISTORY: Kidney stones Correlation CT scan 08/16/2019 KUB submitted on 2 images Right double-J ureteral stent is in place. Proximal right ureteral calculus shows a possible fragment ed or irregular appearance. Vas deferens ossifications noted incidentally. Degenerative disc changes in the visualized spine. IMPRESSION: Indwelling stent, proximal right ureteral calculus or fragmented calculi
[2019-10-13 11:56] LABS: Glucose,Whole Blood 240 mg/dL (75-99)
[2019-10-13 11:58] VITALS: RESP 16
[2019-10-13] MEDS ORDERED: ONDANSETRON 4 MG/2 ML VIAL ONE (11:58)
[2019-10-13] MEDS ORDERED: LIDOCAINE 1% (10MG/ML) FOR IV START INTRADERMA ONE (12:00)
[2019-10-13] MEDS ORDERED: INSULIN ASPART (NovoLOG) 100 UNIT/ML VIAL SQ ONE (12:07)
[2019-10-13] MEDS ORDERED: PROPOFOL 10 MG/ML 20 ML VIAL IV ONE (12:45)
[2019-10-13] MEDS ORDERED: LIDOCAINE 1% INJ 10MG/ML (20 ML MDV) ONE (12:45)
[2019-10-13] MEDS ORDERED: MIDAZOLAM 2 MG/2 ML VIAL ONE (12:45)
[2019-10-13] MEDS ORDERED: SUCCINYLCHOLINE CHLORIDE 100 MG/5 ML SYR IV ONE (12:45)
[2019-10-13] MEDS ORDERED: fentaNYL (PF) 50 MCG/ML 2 ML AMP ONE (12:45)
[2019-10-13] MEDS ORDERED: LACTATED RINGERS 1,000 ML IV ONE (13:43)
[2019-10-13 14:48] VITALS: TEMP 96.8
[2019-10-13 14:52] LABS: Glucose,Whole Blood 166 mg/dL (75-99)
--- NOTE | 2019-10-13 15:02 | P.OP ---
Date of Procedure: 10/13/19 Preoperative Diagnosis: Right ureteral calculus Postoperative Diagnosis: Same Procedure(s) Performed: Cystoscopy, right ureteral stent removal, right ureteroscopy with Holmium laser lithotripsy and stone basketing Anesthesia: SANDEEP Surgeon: Alexander Blank Estimated Blood Loss (ml): 0 IV fluids (ml): 900 Pathology: other (Calculus fragments, sent for chemical analysis) Condition: stable Disposition: PACU Indications for Procedure: The patient is a 58-year-old white male with a several year week history of weakness and confusion, associated with nausea and vomiting. Since admission, both urine and blood cultures have shown MSSA. A CT scan revealed right hydronephrosis due to an 8-10 mm right proximal ureteral calculus. He denies any prior history of urolithiasis. Right ureteral stent placement was unsuccessful, so he underwent insertion of a right percutaneous nephrolithotomy. He subsequently underwent ESWL. A ureteral stent was placed at that time, and the nephrostomy tube removed. Operative Findings: Impacted right proximal ureteral calculus, fragmented completely. Description of Procedure: The patient was taken to the operating room and placed in the dorsolithotomy position, with legs supported in Jakob stirrups. The external genitalia was prepped and draped sterilely. The 30 lens was used to introduce the 21-Mauritian Toussaint cystoscopic sheath through the urethra and into the bladder under direct vision. The prostatic urethra showed evidence of mild lateral lobe enlargement. The bladder was examined in its entirety. no abnormalities were seen. Grasping forceps were used to grasp the distal end of the right ureteral stent, which was removed along with the cystoscope. A 0.038 inch Glidewire was passed through the stent and up to the right renal pelvis. The Glidewire passed beyond the calculus, which was seen on fluoroscopy. The stent was removed, and an 11/13-Mauritian ureteral access catheter was passed over the wire, up to the mid ureter. The mini flexible ureteroscope was passed through the ureteral access catheter sheath and advanced under direct vision, up to the calculus. The 272 holmium laser probe was passed through the ureteroscope, and lithotripsy was performed utilizing a dusting technique. 2 small calculus fragments were encountered. These were both fragmented completely, with several fragments removed via Stone basketing using a 1.9-Mauritian nitinol basket. However, the ureteroscope was advanced and the main calculus was noted to be largely intact and impacted, virtually adherent to the mucosa in some areas. Lithotripsy was p erformed, again utilizing a dusting technique. As the calculus was being fragmented, the edges of the calculus were pried away from the wall of the ureter to avoid ureteral injury. The last fragment refluxed into the renal pelvis, where lithotripsy was completed. A popcorning technique was then used to complete fragmentation of the renal pelvic calculus fragments, leaving no residual fragments exceeding 1-2 mm in size. The ureteroscope was slowly withdrawn under direct vision. There was no evidence of ureteral injury, though the ureter showed changes in the area where the calculus had been impacted. Only dust remained within the ureter. The patient tolerated the procedure well was taken to the recovery room in stable condition.
[2019-10-13 15:06] VITALS: PULSE 87
[2019-10-13 15:20] VITALS: BP 155/92
--- NOTE | 2019-10-13 16:19 | FL ---
EXAMINATION TYPE: FL guidance operating room DATE OF EXAM: 10/13/2019 CLINICAL HISTORY: Right kidney stone. Right ureteroscopy and lithotripsy. TECHNIQUE: Fluoroscopy. COMPARISON: KUB 10/13/2019 FINDINGS: Fluoroscopic guidance was provided during procedure for performing physician. A total of 18 seconds of fluoroscopic time was utilized during the procedure. No spot images were acquired. Plea se see operative report for additional details. IMPRESSION: As Above.
== END 2019-10-13 15:49 | disposition home or self-care (01) ==
LOC: OR 11:07
PROVIDERS: ATTEND Urology
DX: N13.2 Hydronephrosis with renal and ureteral calculous obstruction (principal); I10 Essential (primary) hypertension; E11.9 Type 2 diabetes mellitus without complications; D64.9 Anemia, unspecified; E66.9 Obesity, unspecified; Z79.4 Long term (current) use of insulin; Z79.899 Other long term (current) drug therapy; Z90.89 Acquired absence of other organs; Z68.25 Body mass index [BMI] 25.0-25.9, adult
CPT/HCPCS: 52353; 82365; 74018; C1769; J2250; J2405; J2001; J3010; J0330; J2704